=== PATIENT | female | born 1960 | race Caucasian/White ===

== ENCOUNTER 2017-01-29 11:48 | Inpatient (IN) | payer OTHER ==
[~2017-01-29] VITALS: Ht 162.6 cm; Wt 78.4 kg
[2017-01-29] VITALS (8 sets, daily range): BP systolic 118–149; BP diastolic 69–87; PULSE 80–105; RESP 16–20; TEMP 98–100.4; O2SAT 98–100
[~2017-01-29 11:48] MED LIST: ASPI81TA82 PO; DAPA1TAB8 PO; LISI2.5T55 PO; PRAV10 PO
[2017-01-29] MEDS ORDERED: SODIUM CHLOR 0.9% 1000 ML INJ 1,000 ML IV SCH (12:19)
[2017-01-29] MEDS ORDERED: ONDANSETRON HCL 4 MG/2 ML VIAL IVP ONE (12:30)
[2017-01-29] MEDS ORDERED: SODIUM CHLORIDE 0.9% FLUSH 10 ML FLUSH IV FLUSH PRN (12:30)
[2017-01-29] MEDS ORDERED: MORPHINE SULFATE 4 MG/ML INJ IV PUSH ONE (12:30)
--- NOTE | 2017-01-29 12:31 | PD ---
HPI Chief Complaint: Abdominal Pain Time Seen by Provider: 12:06 Travel History International Travel<30 days: No Contact w/Intl Traveler<30days: No Traveled to known affect area: No History of Present Illness HPI Patient is a 56-year-old female with hx of DM, HTN, Hyperlipidemia who presents to emergency room with complaints of abdominal pain. Patient reports that she has been having increased nausea, vomiting and diarrhea since Saturday. Patient reports that she had 2-3 episodes of diarrhea on Saturday, she has not had diarrhea since then. Reports that the last time she had a bowel movement was Saturday. Reports that her abdomen has been feeling distended since Saturday. Patient reports that she has been on antibiotics for URI and last took it about one month ago. Reports no sick contacts or any recent travels. Patient reports that since Saturday, she's had increased pain to her left lower abdomen, reports that pain has been constant - no history of abdominal pain in the past. Patient reports that she has been having increased fevers and chills. Denies any cough or congestion. Patient reports that overall, she has had decreased by mouth intake as she cannot tolerate anything by mouth. Patient denies any chest pain or shortness of breath. Patient reports no hx of abdominal surgeries in the past, she did have a colonscopy by Dr. Lester 1 year ago - reports that the colonscopy was negative. PFSH Past Medical History Diabetes: Yes Patient Takes Glucophage: Yes Tetanus Vaccination: > 5 Years Influenza Vaccination: No ?: Not Menopausal: Yes Past Surgical History Other Surgery: Yes (Lt. breast) Social History Alcohol Use: No Tobacco Use: No Substance Use: No Allergies-Medications (Allergen,Severity, Reaction): Coded Allergies: No Known Allergies (Unverified , 01/29/17) Reported Meds & Prescriptions Reported Meds & Active Scripts Active Macrobid (Nitrofurantoin Monoh/Nitrofur Macro) 100 Mg Cap 100 Mg PO BID 10 Days Reported Metformin (Metformin HCl) 1,000 Mg Tab 1,000 Mg PO DAILY With a meal Xigduo Xr 24 HR (Dapagliflozin-Metformin ER 24 HR) 10-1,000 Mg Tab 1 Tab PO DAILY Duloxetine DR (Duloxetine HCl) 60 Mg Capdr 60 Mg PO DAILY Trulicity Inj (Dulaglutide Inj) 1.5 Mg/0.5 Ml Pen 1.5 Mg SQ Q7D Linzess (Linaclotide) 290 Mcg Cap 290 Mcg PO DAILY Pravastatin 40 Mg Tab 40 Mg PO DAILY Lisinopril 5 Mg Tab 5 Mg PO DAILY Review of Systems General / Constitutional: Positive: Fever, Chills Eyes: No: Visual changes HENT: No: Headaches Cardiovascular: No: Chest Pain or Discomfort, Palpitations, Irregular Rhythm Respiratory: No: Cough, Shortness of Breath, Wheezing Gastrointestinal: Positive: Nausea, Vomiting, Diarrhea, Abdominal Pain Genitourinary: No: Dysuria Musculoskeletal: No: Pain Skin: No Rash Neurologic: No: Weakness Psychiatric: No: Depression Endocrine: No: Polydipsia Hematologic/Lymphatic: No: Easy Bruising Physical Exam Narrative GENERAL: No acute distress, nontoxic SKIN: Warm and dry. HEAD: Atraumatic. Normocephalic. EYES: Pupils equal and round. No scleral icterus. No injection or drainage. ENT: No nasal bleeding or discharge. Mucous membranes pink and moist. NECK: Trachea midline. No JVD. CARDIOVASCULAR: Regular rate and rhythm. No murmur appreciated. RESPIRATORY: No accessory muscle use. Clear to auscultation. Breath sounds equal bilaterally. GASTROINTESTINAL: Abdomen soft, patient with increased tenderness to the right lower as well as left lower abdomen. No rebound or guarding on exam, rectal exam: no stool in colon, neg hemacolt MUSCULOSKELETAL: No obvious deformities. No clubbing. No cyanosis. No edema. NEUROLOGICAL: Awake and alert. No obvious cranial nerve deficits. Motor grossly within normal limits. Normal speech. PSYCHIATRIC: Appropriate mood and affect; insight and judgment normal. Data Data Last Documented VS Vital Signs Date Time Temp Pulse Resp B/P Pulse Ox O2 Delivery O2 Flow Rate FiO2 01/29/17 15:35 80 16 140/83 100 Room Air 01/29/17 11:55 98.0 Orders Complete Blood Count With Diff (01/29/17 12:19) Comprehensive Metabolic Panel (01/29/17 12:19) Lipase (01/29/17 12:19) Prothrombin Time / Inr (Pt) (01/29/17 12:19) Act Partial Throm Time (Ptt) (01/29/17 12:19) Urinalysis - C+S If Indicated (01/29/17 12:19) Ct Abd/Pel W Iv Contrast(Rout) (01/29/17 12:19) Iv Access Insert/Monitor (01/29/17 12:19) Morphine Inj (Morphine Inj) (01/29/17 12:30) Ondansetron Inj (Zofran Inj) (01/29/17 12:30) Sodium Chlor 0.9% 1000 Ml Inj (Ns 1000 M (01/29/17 12:19) Sodium Chloride 0.9% Flush (Ns Flush) (01/29/17 12:30) Urine Culture (01/29/17 12:25) Ceftriaxone Inj (Rocephin Inj) (01/29/17 13:00) Iohexol 350 Inj (Omnipaque 350 Inj) (01/29/17 13:51) Sodium Chlor 0.9% 1000 Ml Inj (Ns 1000 M (01/29/17 15:45) C Diff Toxin Pcr (01/29/17 15:44) Lactic Acid Sepsis Protocol (01/29/17 15:52) Blood Culture (01/29/17 15:52) Metronidazole 500 Mg Inj (Flagyl 500 Mg (01/29/17 16:00) Admit Order (Ed Use Only) (01/29/17 16:16) Labs Laboratory Tests Test 01/29/17 12:25 White Blood Count 7.3 TH/MM3 Red Blood Count 5.21 MIL/MM3 Hemoglobin 14.9 GM/DL Hematocrit 44.3 % Mean Corpuscular Volume 85.1 FL Mean Corpuscular Hemoglobin 28.7 PG Mean Corpuscular Hemoglobin 33.7 % Concent Red Cell Distribution Width 12.8 % Platelet Count 184 TH/MM3 Mean Platelet Volume 9.4 FL Neutrophils (%) (Auto) 69.3 % Lymphocytes (%) (Auto) 21.1 % Monocytes (%) (Auto) 7.7 % Eosinophils (%) (Auto) 1.5 % Basophils (%) (Auto) 0.4 % Neutrophils # (Auto) 5.1 TH/MM3 Lymphocytes # (Auto) 1.5 TH/MM3 Monocytes # (Auto) 0.6 TH/MM3 Eosinophils # (Auto) 0.1 TH/MM3 Basophils # (Auto) 0.0 TH/MM3 CBC Comment DIFF FINAL Differential Comment Prothrombin Time 10.6 SEC Prothromb Time International 1.0 RATIO Ratio Activated Partial 24.8 SEC Thromboplast Time Urine Collection Type CLEAN CATCH Urine Color YELLOW Urine Turbidity CLEAR Urine pH 5.5 Urine Specific [place] 1.022 Urine Protein NEG mg/dL Urine Glucose (UA) 1000 OR GREATER mg/dL Urine Ketones 40 mg/dL Urine Occult Blood TRACE Urine Nitrite NEG Urine Bilirubin NEG Urine Leukocyte Esterase TRACE Urine RBC 4-9 /hpf Urine WBC 15-19 /hpf Urine WBC Clumps FEW Urine Squamous Epithelial 6-8 /hpf Cells Urine Bacteria MOD /hpf Microscopic Urinalysis Comment CULTURE INDICATED Urine Collection Time 12:25 Sodium Level 141 MEQ/L Potassium Level 3.5 MEQ/L Chloride Level 103 MEQ/L Carbon Dioxide Level 28.3 MEQ/L Anion Gap 10 MEQ/L Blood Urea Nitrogen 11 MG/DL Creatinine 0.65 MG/DL Estimat Glomerular Filtration 94 ML/MIN Rate Random Glucose 169 MG/DL Calcium Level 8.7 MG/DL Total Bilirubin 1.5 MG/DL Aspartate Amino Transf 16 U/L (AST/SGOT) Alanine Aminotransferase 25 U/L (ALT/SGPT) Alkaline Phosphatase 81 U/L Total Protein 7.2 GM/DL Albumin 3.3 GM/DL Lipase 82 U/L [facility] Medical Decision Making Medical Screen Exam Complete: Yes Emergency Medical Condition: Yes Interpretation(s) Vital Signs Date Time Temp Pulse Resp B/P Pulse Ox O2 Delivery O2 Flow Rate FiO2 01/29/17 11:55 98.0 105 18 119/87 98 Room Air Differential Diagnosis Colitis, appendicitis, viral syndrome, UTI, electrolyte abnormality, dehydration Narrative Course Patient is a 56-year-old female who presents to emergency room with complaints of abdominal pain. She reports that she has been having increased nausea, vomiting and diarrhea since Saturday. Reports that she has been having increased lower abdominal pain, worse on her left lower quadrant. Patient uncomfortable on exam, labs as well as CAT scan abdomen and pelvis ordered. Will give patient IV fluids as well as antiemetics and pain medications in the meantime. Laboratory Tests Test 01/29/17 12:25 White Blood Count 7.3 TH/MM3 (4.0-11.0) Red Blood Count 5.21 MIL/MM3 (4.00-5.30) Hemoglobin 14.9 GM/DL (11.6-15.3) Hematocrit 44.3 % (35.0-46.0) Mean Corpuscular Volume 85.1 FL (80.0-100.0) Mean Corpuscular Hemoglobin 28.7 PG (27.0-34.0) Mean Corpuscular Hemoglobin 33.7 % Concent (32.0-36.0) Red Cell Distribution Width 12.8 % (11.6-17.2) Platelet Count 184 TH/MM3 (150-450) Mean Platelet Volume 9.4 FL (7.0-11.0) Neutrophils (%) (Auto) 69.3 % (16.0-70.0) Lymphocytes (%) (Auto) 21.1 % (9.0-44.0) Monocytes (%) (Auto) 7.7 % (0.0-8.0) Eosinophils (%) (Auto) 1.5 % (0.0-4.0) Basophils (%) (Auto) 0.4 % (0.0-2.0) Neutrophils # (Auto) 5.1 TH/MM3 (1.8-7.7) Lymphocytes # (Auto) 1.5 TH/MM3 (1.0-4.8) Monocytes # (Auto) 0.6 TH/MM3 (0-0.9) Eosinophils # (Auto) 0.1 TH/MM3 (0-0.4) Basophils # (Auto) 0.0 TH/MM3 (0-0.2) CBC Comment DIFF FINAL Differential Comment Prothrombin Time 10.6 SEC (9.8-11.6) Prothromb Time International 1.0 RATIO Ratio Activated Partial 24.8 SEC Thromboplast Time (24.3-30.1) Urine Collection Type CLEAN CATCH Urine Color YELLOW (YELLW/STRAW) Urine Turbidity CLEAR (CLEAR) Urine pH 5.5 (5.0-8.5) Urine Specific [place] 1.022 (1.002-1.035) Urine Protein NEG mg/dL (NEG-TRACE) Urine Glucose (UA) 1000 OR GREATER mg/dL (NEG) Urine Ketones 40 mg/dL (NEG) Urine Occult Blood TRACE (NEG) Urine Nitrite NEG (NEG) Urine Bilirubin NEG (NEG) Urine Leukocyte Esterase TRACE (NEG) Urine RBC 4-9 /hpf (0-3) Urine WBC 15-19 /hpf (0-5) Urine WBC Clumps FEW (NONE) Urine Squamous Epithelial 6-8 /hpf (0-5) Cells Urine Bacteria MOD /hpf (NONE) Microscopic Urinalysis Comment CULTURE INDICATED Urine Collection Time 12:25 Sodium Level 141 MEQ/L (136-145) Potassium Level 3.5 MEQ/L (3.5-5.1) Chloride Level 103 MEQ/L (98-107) Carbon Dioxide Level 28.3 MEQ/L (21.0-32.0) Anion Gap 10 MEQ/L (5-15) Blood Urea Nitrogen 11 MG/DL (7-18) Creatinine 0.65 MG/DL (0.50-1.00) Estimat Glomerular Filtration 94 ML/MIN (>89) Rate Random Glucose 169 MG/DL (74-106) Calcium Level 8.7 MG/DL (8.5-10.1) Total Bilirubin 1.5 MG/DL (0.2-1.0) Aspartate Amino Transf 16 U/L (15-37) (AST/SGOT) Alanine Aminotransferase 25 U/L (10-53) (ALT/SGPT) Alkaline Phosphatase 81 U/L (45-117) Total Protein 7.2 GM/DL (6.4-8.2) Albumin 3.3 GM/DL CT abdomen and pelvis with IV contrast (3.4-5.0) Lipase 82 U/L (73-393) CT the abdomen and pelvis with IV contrast shows diffuse gaseous distention of the colon. No definite findings to indicate a colonic instruction are seen. No free air or free fluid is present. I did review all labs and all studies of patient in detail. Patient with benign exam except for the positive UA. Urine cultures were sent. CBC: WNL BMP: sodium 141, cl 103, potassium 3.5, bun: 11, creatine: 0.65, glucose 169, total bili 1.5, lipase 82 UA Positive for 1000 or greater glucose, 40 ketones, 15-19 wbc, 4-9 rbc, mod bacteria Last Impressions Abdomen/Pelvis CT 01/29/17 1219 Signed Impressions: Service Date/Time: Sunday, January 29, 2017 13:38 - CONCLUSION: 1. Diffuse gaseous distention of the colon. No definite findings to indicate a colonic obstruction are seen. No free air or free fluid is present. Cameron Adamson MD patient re-evaluated, patient with continued pain to abdomen, pt was ordered morphine which she refuses at this time. call made to gen surgery as patient has diffuse gaseous distention of colon and intractable pain case reviewed with Dr. Aguirre, reports concern for possible ischemic colitis secondary to low flow state, recommends IV hydration and r/o infectious cause will obs to medicine, call made to Dr. Amarilys Lester, recommends that patient revieves multiple enema's tonight, will see pt in consult tomorrow morning case reviewed with Dr. moreno who accepts pt to service Critical Care Narrative Aggregate critical care time was 30 minutes. Time to perform other separately billable procedures was not included in the critical care time. My time did not include minutes spent treating any other patients simultaneously or on activities that did not directly contribute to the patient's treatment. The services I provided to this patient were to treat and/or prevent clinically significant deterioration that could result in: , decompensation, deterioration I provided critical care services requiring my management, as noted below: Chart data review, documentation time, medication orders and management, vital sign assessments/reviewing monitor data, ordering and reviewing lab tests, ordering and interpreting/reviewing x-rays and diagnostic studies, care of the patient and discussion of the patient with the admitting physicians. Diagnosis Primary Impression: Abdominal pain Qualified Code: R10.30 - Lower abdominal pain Additional Impression: UTI (urinary tract infection) Qualified Code: N30.01 - Acute cystitis with hematuria Admitting Information Admitting Physician Requests: Observation Patient Instructions: General Instructions Additional Instructions: Please provide patient with a copy of her labs work and studies as discharge Please follow up with your primary care doctor in 1-2 days Return to ER if symptoms return or worsen Please bring your labs and studies to your doctor's office for follow up Return to ER as needed Med/Other Pt SpecificInfo: Prescription(s) given Scripts Nitrofurantoin Monohydrate Macrocrystals (Macrobid)100 Mg [id number] Mg PO BID 10 Days Ref 0 Prov:Katelynn Horne DO 01/29/17 Disposition: 01 DISCHARGE HOME Katelynn Horne DO Jan 29, 2017 12:31
[2017-01-29 12:33] LABS: BLOOD, URINE TRACE (NEG); GLUCOSE,URINE 1000 OR GREATER mg/dL (NEG); KETONE, URINE 40 mg/dL (NEG); NITRITE,URINE NEG (NEG); PH, URINE 5.5 (5.0-8.5)
[2017-01-29 12:36] LABS: AUTOMATED NEUTROPHIL # 5.1 TH/MM3 (1.8-7.7); BASOPHIL % 0.4 % (0.0-2.0); EOSINOPHIL # 0.1 TH/MM3 (0-0.4); EOSINOPHIL % 1.5 % (0.0-4.0); HEMATOCRIT 44.3 % (35.0-46.0); HEMO FLAGS DIFF FINAL; LYMPH % 21.1 % (9.0-44.0); LYMPHOCYTE # 1.5 TH/MM3 (1.0-4.8); MEAN CELL VOLUME 85.1 FL (80.0-100.0); MEAN CORPUSCULAR HEMOGLOBIN 28.7 PG (27.0-34.0); MEAN CORPUSCULAR HGB CONC 33.7 % (32.0-36.0); MONO % 7.7 % (0.0-8.0); NEUT % 69.3 % (16.0-70.0); PLATELET COUNT 184 TH/MM3 (150-450); RED BLOOD COUNT 5.21 MIL/MM3 (4.00-5.30); RED CELL DISTRIBUTION WIDTH 12.8 % (11.6-17.2); WHITE BLOOD COUNT 7.3 TH/MM3 (4.0-11.0)
[2017-01-29 12:43] LABS: CHLORIDE 103 MEQ/L (98-107); POTASSIUM 3.5 MEQ/L (3.5-5.1); SODIUM (NA) 141 MEQ/L (136-145)
[2017-01-29 12:44] LABS: METHOD OF COLLECTION CLEAN CATCH; URINE COLOR YELLOW (YELLW/STRAW)
[2017-01-29 12:45] LABS: BACTERIA, URINE MOD /hpf; COMMENT (UR) CULTURE INDICATED; CULTURE IF INDICATED CULTURE INDICATED; WBC, URINE 15-19 /hpf (0-5)
[2017-01-29 12:47] LABS: APTT (PATIENT) 24.8 SEC (24.3-30.1); PROTHROMBIN TIME - PATIENT 10.6 SEC (9.8-11.6)
[2017-01-29 12:48] LABS: ANION GAP 10 MEQ/L (5-15); BICARBONATE 28.3 MEQ/L (21.0-32.0); BLOOD UREA NITROGEN 11 MG/DL (7-18)
[2017-01-29] MEDS ORDERED: DULA0.5I SQ (12:48)
[2017-01-29] MEDS ORDERED: DULO1CAP3 PO (12:48)
[2017-01-29] MEDS ORDERED: PRAV40TA2 PO (12:48)
[2017-01-29] MEDS ORDERED: LINA290C PO (12:48)
[2017-01-29] MEDS ORDERED: LISI-519 PO (12:48)
[2017-01-29] MEDS ORDERED: DAPA1TAB8 PO (12:48)
[2017-01-29] MEDS ORDERED: METF1000 PO (12:48)
[2017-01-29 12:51] LABS: ALT (GPT) 25 U/L (10-53); AST (GOT) 16 U/L (15-37); GLOMERULAR FILTRATION RATE 94 ML/MIN (>89)
[2017-01-29 12:52] LABS: TOTAL BILIRUBIN ADULT 1.5 MG/DL (0.2-1.0)
[2017-01-29 12:53] LABS: ALKALINE PHOSPHATASE 81 U/L (45-117)
[2017-01-29] MEDS ORDERED: cefTRIAXone INJ 1,000 MG in SODIUM CHLORIDE 0.9% INJ 100 ML IV ONE (13:00)
[2017-01-29] MEDS: METFORMIN HOLD POST IV CONTRAST XX SCH (13:50)
[2017-01-29] MEDS ORDERED: IOHEXOL 350 MG/ML 10 ML VIAL (for RAD DIAG) IV ONE (13:51)
--- NOTE | 2017-01-29 14:31 | RADHPO ---
EXAM DATE/TIME: 01/29/2017 13:38 [place] COMPARISON: No previous studies available for comparison. INDICATIONS : Left lower quadrant abdominal pain with nausea and vomiting. IV CONTRAST: 95 cc Omnipaque 350 (iohexol) IV ORAL CONTRAST: No oral contrast ingested. RADIATION DOSE: 11.18 CTDIvol (mGy) MEDICAL HISTORY : Diabetes. SURGICAL HISTORY : Left breast lumpectomy. ENCOUNTER: Initial ACUITY: 4 - 6 days PAIN SCALE: 9/10 LOCATION: Left lower quadrant TECHNIQUE: Volumetric scanning of the abdomen and pelvis was performed. Using automated exposure control and ad justment of the mA and/or kV according to patient size, radiation dose was kept as low as reasonably achievable to obtain optimal diagnostic quality images. FINDINGS: The limited portion of the lung base visualized is clear. The appearance of the liver, spleen, pancreas, adrenal glands and kidneys is within normal limits. There is no free intraperitoneal air. No free intraperitoneal fluid is identified. There is no retrop eritoneal lymphadenopathy. The aorta is normal in caliber. The visualized loops of small large bowel demonstrate diffuse, gaseous distention of the colon. The c olon is distended throughout its course. No definite findings to indicate a colonic obstruction are s een. There is gas and stool down to the rectum. No free intraperitoneal air or free intraperitoneal f luid is present. There is no free fluid within the pelvis. No iliac or inguinal adenopathy is seen. The reproductive o rgans are intact. The visualized bony structures demonstrate mild degenerative changes but are otherwise intact. CONCLUSION: 1. Diffuse gaseous distention of the colon. No definite findings to indicate a colonic obstruction ar e seen. No free air or free fluid is present. Cameron Adamson MD on January 29, 2017 at 14:19 Board Certified Radiologist. This report was verified electronically.
[2017-01-29] MEDS ORDERED: MACR100C2 PO (14:35)
[2017-01-29] MEDS ORDERED: SODIUM CHLOR 0.9% 1000 ML INJ 1,000 ML IV ONE (15:45)
[2017-01-29] MEDS ORDERED: metroNIDAZOLE 500 MG INJ 100 ML IV ONE (16:00)
[2017-01-29] MEDS ORDERED: NALOXONE HCL 0.4 MG/ML AMP IV PRN (17:30)
[2017-01-29] MEDS ORDERED: METOCLOPRAMIDE HCL 10 MG/2 ML VIAL IV PUSH PRN (17:30)
[2017-01-29] MEDS ORDERED: SOD PHOSPHATE/SOD BIPHOSPHATE (ADULT) ENEMA 133ML PR PRN ×2 (17:30→19:20)
[2017-01-29] MEDS ORDERED: BISACODYL 10 MG SUPP PR PRN (17:30)
[2017-01-29] MEDS: SODIUM CHLOR 0.9% 1000 ML INJ 1,000 ML IV SCH (18:53)
--- NOTE | 2017-01-29 19:35 | HHI.HP ---
[facility] Alexandra De Guzman Admission Diagnosis intractable abdominal pain, constipation vs ischemic colitis Diagnoses: Chief Complaint: Abdominal pain and distention nausea vomiting Travel History International Travel<30 Days: No Contact w/Intl Traveler <30 Da: No Traveled to Known Affected Are: No History of Present Illness 83 years old female with history of diabetes mellitus hypertension hyperlipidemia presented to the ED complaining of severe abdominal pain 9 out of 10 constant with nausea and vomiting, and alternating diarrhea and constipation. Patient had 2-3 episodes of diarrhea on Saturday but she has been constipated without even Fleet just passing ever since. Complaining of worsening significant abdominal distention and blanching. Patient also reported seeing blood in the bottom of the toilets [place] darker side, Patient started on antibiotic for upper respiratory infection about a month ago. She reported the pain is mainly on her left lower quadrant without transfer, get slightly better with passing gas if she was able to. No chest pain or short of breath, subjective feverish feeling with chills, not able to tolerate by mouth intake however she does feel hungry. No previous history of abdominal surgery, she had colonoscopy by Dr. Barry 1 year ago and she reported it was negative Review of Systems All 10 systems reviewed and was positive for what is mentioned in history of present illness otherwise negative Past Family Social History Past Medical History As in history of present illness Past Surgical History Colonoscopy a year ago Allergies: Coded Allergies: No Known Allergies (Unverified , 01/29/17) Family History Patient not aware of any significant disease runs in her family Social History Denied tobacco alcohol or illicit drug abuse Physical Exam Vital Signs Vital Signs Date Time Temp Pulse Resp B/P Pulse Ox O2 Delivery O2 Flow Rate FiO2 01/29/17 15:35 80 16 140/83 100 Room Air 01/29/17 11:55 98.0 105 18 119/87 98 Room Air Physical Exam GENERAL: This is a well-nourished, well-developed obese patient, in no apparent distress. SKIN: No rashes, warm and dry HEAD: Atraumatic. Normocephalic. EYES: Pupils equal round and reactive. Extraocular motions intact. No scleral icterus. ENT: Nose without bleeding, or drainage, Airway patent. NECK: Trachea midline. Supple CARDIOVASCULAR: Regular rate and rhythm without murmurs, gallops, or rubs. RESPIRATORY: Fair air entry bilaterally. No wheezes, rales, or rhonchi. GASTROINTESTINAL: Abdomen soft, positive tenderness left lower quadrant, positive distention with tympanic percussion. Positive bowel sounds MUSCULOSKELETAL: Extremities without clubbing, cyanosis, or edema. Pedal pulses appreciated NEUROLOGICAL: Awake and alert. Moves all extremity. Normal speech.no focal neurological deficit Laboratory Laboratory Tests Test 01/29/17 01/29/17 12:25 16:00 White Blood Count 7.3 Red Blood Count 5.21 Hemoglobin 14.9 Hematocrit 44.3 Mean Corpuscular Volume 85.1 Mean Corpuscular Hemoglobin 28.7 Mean Corpuscular Hemoglobin 33.7 Concent Red Cell Distribution Width 12.8 Platelet Count 184 Mean Platelet Volume 9.4 Neutrophils (%) (Auto) 69.3 Lymphocytes (%) (Auto) 21.1 Monocytes (%) (Auto) 7.7 Eosinophils (%) (Auto) 1.5 Basophils (%) (Auto) 0.4 Neutrophils # (Auto) 5.1 Lymphocytes # (Auto) 1.5 Monocytes # (Auto) 0.6 Eosinophils # (Auto) 0.1 Basophils # (Auto) 0.0 CBC Comment DIFF FINAL Differential Comment Prothrombin Time 10.6 Prothromb Time International 1.0 Ratio Activated Partial 24.8 Thromboplast Time Urine Collection Type CLEAN CATCH Urine Color YELLOW Urine Turbidity CLEAR Urine pH 5.5 Urine Specific [place] 1.022 Urine Protein NEG Urine Glucose (UA) 1000 OR GREATER Urine Ketones 40 Urine Occult Blood TRACE Urine Nitrite NEG Urine Bilirubin NEG Urine Leukocyte Esterase TRACE Urine RBC 4-9 Urine WBC 15-19 Urine WBC Clumps FEW Urine Squamous Epithelial 6-8 Cells Urine Bacteria MOD Microscopic Urinalysis Comment CULTURE INDICATED Urine Collection Time 12:25 Sodium Level 141 Potassium Level 3.5 Chloride Level 103 Carbon Dioxide Level 28.3 Anion Gap 10 Blood Urea Nitrogen 11 Creatinine 0.65 Estimat Glomerular Filtration 94 Rate Random Glucose 169 Calcium Level 8.7 Total Bilirubin 1.5 Aspartate Amino Transf 16 (AST/SGOT) Alanine Aminotransferase 25 (ALT/SGPT) Alkaline Phosphatase 81 Total Protein 7.2 Albumin 3.3 Lipase 82 Lactic Acid Level 1.0 Date/Time Procedure Status Source Growth 01/29/17 16:00 Aerobic Blood Culture Received Blood Peripheral Pending 01/29/17 16:00 Anaerobic Blood Culture Received Blood Peripheral Pending 01/29/17 12:25 Urine Culture Received Urine Clean Catch Pending Result Diagram: 01/29/17 1225 01/29/17 1225 Imaging Last Impressions Abdomen/Pelvis CT 01/29/17 1219 Signed Impressions: Service Date/Time: Sunday, January 29, 2017 13:38 - CONCLUSION: 1. Diffuse gaseous distention of the colon. No definite findings to indicate a colonic obstruction are seen. No free air or free fluid is present. Cameron Adamson MD Assessment and Plan Assessment and Plan 56 years old diabetic female presented with abdominal distention nausea vomiting and occasional diarrhea alternates with constipation now and rectal bleeding she was found to have diffuse gaseous pattern on CT abdomen without any thickened blockage or free air. Suspect ischemic bowel due to low flow due to constipation Presented with severe abdominal pain, nausea vomiting, occasional diarrhea with rectal bleed alternate with constipation ? Gastroparesis due to diabetes GS has been contacted by ED recommended calling Dr. Lester colorectal surgeon who recommended admission, multiple enemas and further recommendation when she sees the patient. Keep nothing by mouth Check LDH lactic acid Consult CRS Pain management cautiously with morphine only as needed for severe pain due to negative effect on bowel motility Reglan and Fleet Enema UTI with remarkable UA and glucosuria Start Rocephin and he will continue Follow urine culture Diabetes mellitus: Check A1c to assess control Accu-Chek with insulin sliding scale Hold metformin and other oral agent Hyperlipidemia Continue statin oral diet resumed DVT prophylaxis with SCD and heparin Discussed Condition With ED physician and patient Chantel Tyson MD Jan 29, 2017 19:35
[2017-01-29] MEDS ORDERED: MORPHINE SULFATE 4 MG/ML INJ IV PUSH PRN (20:30)
[2017-01-29] MEDS: HEPARIN SODIUM - SQ 10,000 UNITS/ML VIAL SQ SCH (21:36)
[2017-01-30] VITALS (15 sets, daily range): BP systolic 80–146; BP diastolic 54–91; PULSE 76–154; RESP 18–20; TEMP 97.4–98.5; O2SAT 97–100
[2017-01-30] MEDS: SODIUM CHLOR 0.9% 1000 ML INJ 1,000 ML IV SCH ×2 (05:02→13:17)
[2017-01-30] MEDS: HEPARIN SODIUM - SQ 10,000 UNITS/ML VIAL SQ SCH ×2 (05:04→13:53)
[2017-01-30 06:55] LABS: AUTOMATED NEUTROPHIL # 3.9 TH/MM3 (1.8-7.7); BASOPHIL % 0.5 % (0.0-2.0); EOSINOPHIL # 0.1 TH/MM3 (0-0.4); EOSINOPHIL % 2.2 % (0.0-4.0); HEMATOCRIT 38.5 % (35.0-46.0); HEMO FLAGS DIFF FINAL; LYMPH % 25.8 % (9.0-44.0); LYMPHOCYTE # 1.6 TH/MM3 (1.0-4.8); MEAN CELL VOLUME 85.9 FL (80.0-100.0); MEAN CORPUSCULAR HEMOGLOBIN 28.7 PG (27.0-34.0); MEAN CORPUSCULAR HGB CONC 33.5 % (32.0-36.0); MONO % 7.7 % (0.0-8.0); NEUT % 63.8 % (16.0-70.0); PLATELET COUNT 159 TH/MM3 (150-450); RED BLOOD COUNT 4.48 MIL/MM3 (4.00-5.30); RED CELL DISTRIBUTION WIDTH 12.8 % (11.6-17.2); WHITE BLOOD COUNT 6.1 TH/MM3 (4.0-11.0)
[2017-01-30 06:57] LABS: POTASSIUM 3.8 MEQ/L (3.5-5.1)
[2017-01-30 07:02] LABS: BICARBONATE 22.8 MEQ/L (21.0-32.0)
[2017-01-30 07:06] LABS: TOTAL BILIRUBIN ADULT 1.1 MG/DL (0.2-1.0)
[2017-01-30 07:11] LABS: INDIRECT BILIRUBIN 0.9 MG/DL (0.0-0.8)
--- NOTE | 2017-01-30 09:30 | MB ---
cc: BRANDY RIBEIRO M.D., ERICA L. D.O. DATE OF CONSULTATION: 01/30/2017 CHIEF COMPLAINT Abdominal pain. HISTORY OF PRESENT ILLNESS The patient is a 56-year-old female I actually saw within the last year for a screening colonoscopy, which was essentially negative. She was diagnosed with diabetes at about that same time and since then has had not great control of her blood sugars. Initially her A1c was in the 14 range. She did get it down to about 7, but then it came back up to 10. Since the first of the year she has had multiple urinary tract infections and yeast infections and just has really had a variety of problems. Over the last 5-7 days, she began having increasing bloating and abdominal pain with some nausea and vomiting. She had 2-3 episodes of loose stool on Saturday and she has had some blood with that. On her arrival in the hospital she reported her pain as severe and has felt hot, although has not taken her temperature. She has not been eating due to her abdominal pain. She denies any shortness of breath. PAST MEDICAL HISTORY Diabetes. PAST SURGICAL HISTORY Left breast biopsy. ALLERGIES None. MEDICATIONS 1. Metformin. 2. Duloxetine. 3. Trulicity. 4. Xigduo. 5. Linzess. 6. Pravastatin. 7. Lisinopril. REVIEW OF SYSTEMS Negative for headaches, change in vision, chest pain, shortness of breath, cough, dysuria, hematuria, difficulty with ambulation or mobility. Positive for depression, fevers, abdominal pain, nausea, vomiting, diarrhea. LABORATORY DATA Laboratory work on admission showed a white count of 7.3, hemoglobin of 14.9 and platelets of 184. This morning white count 6.1, hemoglobin 12.9, platelets 159. Her initial chemistry was normal. Chemistry this morning is basically normal as well, although she does have some mild elevation of her bilirubin to 1.1. Her coags are normal. Urine does show sign of infection and culture is pending. IMAGING DATA CT scan showed a large amount of air throughout the colon but no sign of obstruction. No thickening of the colon indicative of colitis or inflammation and no free air or free fluid. PHYSICAL EXAMINATION GENERAL: An alert female who appears comfortable. NEUROLOGIC: Grossly intact. SKIN: Warm and dry. CARDIOVASCULAR: Regular rate. CHEST: Breathing is symmetric bilaterally and nonlabored. ABDOMEN: Soft, nondistended. Really minimal tenderness on exam. RECTAL: Digital rectal examination reveals good tone. There is no blood on my examining finger. The rectal vault is smooth without any palpable inflammation or abnormality. An enema is also performed without difficulty, with passage of a large amount of gas and some small amounts of brownish stool but no significant blood. IMPRESSION 1. Abdominal pain. 2. Bloating. PLAN I am not clear what caused her failure to pass stool or the loose stools; it is difficult to say. Most of what she describes as loose stools was mostly gas and a very small amount of stool with her reported diarrhea. RECOMMENDATIONS I think it is perfectly reasonable to have her discharged from hospital today. I will follow-up with her in my office tomorrow. I have recommended that she take a dose of MiraLax today, tomorrow and Saturday to see if we can keep things moving. If this becomes a more chronic problem, further testing will be necessary. Thank you very much for your kind referral. MD RHETT Thomas/KYAW /8:58 AM /9:13 AM MTDAnny
[2017-01-30] MEDS ORDERED: BISA10R PR (10:28)
[2017-01-30] MEDS ORDERED: PERI8.6T PO (10:28)
[2017-01-30 11:55] LABS: C. DIFF EPI 027 PRESUMPTIVE NEGATIVE (NEGATIVE); C. DIFF TOXIN PCR NEGATIVE (NEGATIVE)
[2017-01-30] MEDS: cefTRIAXone INJ 1,000 MG in SODIUM CHLORIDE 0.9% INJ 100 ML IV SCH (12:41)
[2017-01-30] MEDS ORDERED: NITROGLYCERIN 0.4 MG SL 25 TABS/BTL SL PRN (12:45)
[2017-01-30] MEDS ORDERED: DILTIAZEM INJ 125 MG in SODIUM CHLORIDE 0.9% INJ 100 ML IV SCH (13:15)
[2017-01-30] MEDS ORDERED: DILTIAZEM HCL 25 MG/5 ML VIAL IV PUSH ONE (13:15)
--- NOTE | 2017-01-30 13:38 | HHI.PR ---
Subjective Remarks I saw the patient earlier this morning, she already had 2 bowel movement she feel little relief in her abdomen, however she stated she feels dizzy and lightheaded, we discussed that and initially thought to be due to straining and vasovagal reaction No fever or chills overnight, patient seen by the colorectal and recommended me relax and follow as an outpatient Enter[facility] I was called by the nurse patient had heart rate of 190, telemetry showed A. fib, 2-D echo showed A. fib with RVR, patient double up chest pain mostly due to the A. fib Objective Vitals Vital Signs Date Time Temp Pulse Resp B/P Pulse Ox O2 Delivery O2 Flow Rate FiO2 01/30/17 13:20 101 01/30/17 13:03 20 01/30/17 12:29 97.5 100 18 101/74 98 01/30/17 12:00 115 01/30/17 08:00 97.4 83 18 128/69 99 01/30/17 04:00 98.2 86 20 146/91 99 01/30/17 00:00 98.3 91 20 118/69 99 01/29/17 21:06 92 01/29/17 21:00 99.5 90 20 139/81 99 01/29/17 20:30 90 20 144/77 99 01/29/17 20:15 20 01/29/17 20:15 100.4 91 20 149/76 99 01/29/17 19:55 100 01/29/17 15:35 80 16 140/83 100 Room Air I/O 01/29/17 01/29/17 01/29/17 01/30/17 01/30/17 01/30/17 07:00 15:00 23:00 07:00 15:00 23:00 Intake Total 1100 ml 1160 ml 700 ml Output Total 400 ml Balance 1100 ml 1160 ml 300 ml Intake Oral 60 ml 0 ml IV Total 1100 ml 1100 ml 700 ml Output Urine Total 400 ml # Voids 1 1 1 # Bowel Movements 2 0 1 Result Diagram: 01/30/17 0520 01/30/17 0520 Imaging Last Impressions Abdomen/Pelvis CT 01/29/17 1219 Signed Impressions: Service Date/Time: Sunday, January 29, 2017 13:38 - CONCLUSION: 1. Diffuse gaseous distention of the colon. No definite findings to indicate a colonic obstruction are seen. No free air or free fluid is present. Cameron Adamson MD Objective Remarks GENERAL: This is a well-nourished, well-developed patient, in no apparent distress. SKIN: No rashes, warm and dry HEAD: Atraumatic. Normocephalic. EYES: Pupils equal round and reactive. Extraocular motions intact. No scleral icterus. ENT: Nose without bleeding, or drainage, Airway patent. NECK: Trachea midline. Supple CARDIOVASCULAR: Regular rate and rhythm without murmurs, gallops, or rubs. RESPIRATORY: Fair air entry bilaterally. No wheezes, rales, or rhonchi. GASTROINTESTINAL: Abdomen soft, still have mild tenderness but less than before , nondistended. Positive bowel sounds MUSCULOSKELETAL: Extremities without clubbing, cyanosis, or edema. Pedal pulses appreciated NEUROLOGICAL: Awake and alert. Moves all extremity. Normal speech.no focal neurological deficit Later on patient had irregularly irregular heart auscultation with no murmur A/P Assessment and Plan 56 years old diabetic female presented with abdominal distention nausea vomiting and occasional diarrhea alternates with constipation now and rectal bleeding she was found to have diffuse gaseous pattern on CT abdomen without any thickened blockage or free air. Suspect ischemic bowel due to low flow due to constipation Presented with severe abdominal pain, nausea vomiting, occasional diarrhea with rectal bleed alternate with constipation ? Gastroparesis due to diabetes GS has been contacted by ED recommended calling Dr. Lester colorectal surgeon who recommended admission, multiple enemas and further recommendation when she sees the patient. Keep nothing by mouth LDH lactic acid WNL Appreciate CRS consult, recommended MIRALAX and keeping stool soft Pain management cautiously with morphine only as needed for severe pain due to negative effect on bowel motility Reglan and Fleet Enema UTI with remarkable UA and glucosuria Start Rocephin and he will continue Follow urine culture Diabetes mellitus: Check A1c to assess control Accu-Chek with insulin sliding scale Hold metformin and other oral agent Hyperlipidemia Continue statin oral diet resumed DVT prophylaxis with SCD and heparin Patient later on developed chest anal with lightheaded, EKG ordered and personally reviewed by me showed A. fib with RVR with a heart rate of 192 Patient started on Cardizem, Sandro Vascor 3, we need to start anticoagulation but we will consult with colorectal surgeon considering patient history of rectal bleed Check cardiac enzyme, monitor telemetry Chantel Tyson MD Jan 30, 2017 13:38
[2017-01-30] MEDS: ACETAMINOPHEN 325 MG TAB PO PRN (13:44)
[2017-01-30] MEDS: METFORMIN HOLD POST IV CONTRAST XX SCH (13:50)
[2017-01-30 14:11] LABS: CREATINE KINASE 34 U/L (26-192)
[2017-01-30] MEDS: ENOXAPARIN SODIUM 80 MG/0.8 ML SYRINGE SQ SCH (15:39)
[2017-01-30] MEDS ORDERED: IBUPROFEN 400 MG TAB PO PRN (16:45)
[2017-01-30 19:35] LABS: CREATINE KINASE 101 U/L (26-192)
[2017-01-30 19:48] LABS: CKMB 0.5 NG/ML (0.5-3.6)
--- NOTE | 2017-01-30 20:01 | EC ---
Study Study Date:01/30/2017 STUDY CONCLUSIONS SUMMARY LEFT VENTRICLE: The cavity size was normal. Wall thickness was normal. Systolic function was normal. The estimated ejection fraction was 60%. Wall motion was normal; there were no regional wall motion abnormalities. If LV function is below 40, please consider prescribing an ACEI or ARB or document rationale for non-use. PROCEDURE DATA STUDY STATUS: Elective. Procedure: Transthoracic echocardiography. Image quality was good. Scanning was performed from the parasternal, apical, and subcostal acoustic windows. Study completion: The patient tolerated the procedure well. Transthoracic echocardiography. M-mode, complete 2D, complete spectral Doppler, and color Doppler. Height: Height: 64in. Weight: Weight: 171.6lb. Body mass index: BMI: 29.5kg/m^2. Body surface area: BSA: 1.83m^2. Patient status: Inpatient. CARDIAC ANATOMY LEFT VENTRICLE: The cavity size was normal. Wall thickness was normal. Systolic function was normal. The estimated ejection fraction was 60%. Wall motion was normal; there were no regional wall motion abnormalities. AORTIC VALVE: Trileaflet; mildly thickened leaflets. Doppler: Transvalvular velocity was within the normal range. There was no stenosis. No regurgitation. Valve area: 2.54cm^2 (Vmax). Indexed valve area: 1.39cm^2/m^2 (Vmax). AORTA: Aortic root: The aortic root was normal in size. MITRAL VALVE: Structurally normal valve. Doppler: Transvalvular velocity was within the normal range. There was no evidence for stenosis. No regurgitation. LEFT ATRIUM: The atrium was normal in size. RIGHT VENTRICLE: The cavity size was normal. Wall thickness was normal. PULMONIC VALVE: Doppler: Transvalvular velocity was within the normal range. There was no evidence for stenosis. No regurgitation. TRICUSPID VALVE: Structurally normal valve. Doppler: Transvalvular velocity was within the normal range. Trace regurgitation. PULMONARY ARTERY: The main pulmonary artery was normal-sized. Systolic pressure was within the normal range. RIGHT ATRIUM: The atrium was normal in size. PERICARDIUM: There was no pericardial effusion. SYSTEMIC VEINS: Inferior vena cava: The vessel was normal in size. Patient weight: 171.6lb _Ejection fraction:_ 65-75% _Fractional shortening:_ 32% up to 5Kg 5-11.5Kg 11.6-22.9Kg 23-45Kg 45-57Kg Aortic Root 7-13 <17 13-22 17-27 17-27 LA diam 6-13 <23 24-38 33-47 37-40 RVID 10-17 7-15 7-15 7-18 8-17 LVIDd 12-22 <32 24-38 33-47 37-40 LVPW 2-4 3-6 5-7 6-8 7-8 IVS 2-4 3-6 5-7 6-8 7-8 BASIC MEASUREMENTS ADULT NORMAL Left ventricle LV internal dimension, ED, chordal *42 mm 43-52 level, PLAX LV internal dimension, ES, chordal 31.6 mm 23-38 level, PLAX Fractional shortening, chordal level, *25 % >29 PLAX LV posterior wall thickness, ED 7.07 mm IVS/LVPW ratio, ED 1.19 <1.3 Ventricular septum Septal thickness, ED 8.39 mm Aortic valve Leaflet separation 17 mm 15-26 BASIC MEASUREMENTS ADULT NORMAL Aortic valve Leaflet separation 17 mm 15-26 Aorta Root diameter, ED 31 mm 20-37 Left atrium Anterior-posterior dimension, ES 35 mm 19-40 Anterior-posterior dimension index, ES 1.91 cm/m^2 <2.2 LA/aortic root ratio 1.13 DOPPLER MEASUREMENTS ADULT NORMAL Main pulmonary artery Pressure, S 24 mm Hg =30 Aortic valve Peak velocity, S 99 cm/s Valve area, Vmax 2.54 cm^2 Valve area index, Vmax 1.39 cm^2/m^2 Mitral valve Peak E-wave velocity 49.9 cm/s Peak A-wave velocity 67.1 cm/s Deceleration time 183 ms 150-230 Peak E/A ratio 0.7 Tricuspid valve Regurgitant peak velocity 189 cm/s Peak RV-RA gradient, S 14 mm Hg Maximal regurgitant velocity 189 cm/s Systemic veins Estimated CVP 10 mm Hg Right ventricle RV pressure, S 27 mm Hg <30 Pulmonic valve Peak velocity, S 90.9 cm/s LEGEND: Mean values are shown as u=mean value. Asterisk (*) anderson values outside specified normal range. Prepared and signed by Silvia Ervin [id number]
--- NOTE | 2017-01-30 23:08 | MB ---
cc: SILVIA SÁNCHEZ MD DATE OF CONSULTATION: 01/30/2017 REASON FOR CONSULTATION: HISTORY OF PRESENT ILLNESS: Ms. Boykin is a 56 year-old white female admitted with abdominal pain, nausea and vomiting. She was severely constipated. She had colonoscopy which was reported unremarkable. She was supposed to be discharged today but she developed atrial fibrillation with rapid ventricular response. She had shortness of breath with atrial fibrillation. She spontaneously converted to sinus rhythm. She is now feeling better. She had three similar episodes over the last year. PAST MEDICAL HISTORY: 1. Hypertension. 2. Dyslipidemia. 3. Diabetes mellitus. MEDICATIONS: 1. Lovenox 2. Ceftriaxone ALLERGIES: NONE. SOCIAL HISTORY: The patient does not smoke. She does not drink alcohol. FAMILY HISTORY: Unknown. REVIEW OF SYSTEMS: Otherwise negative. PHYSICAL EXAMINATION: VITAL SIGNS: Blood pressure 130/81, pulse 90 regular. HEENT: Negative, 2+ carotid upstrokes. No bruits. LUNGS: Clear. HEART: Regular with no murmur, gallop or rub. ABDOMEN: Soft. No bruits. EXTREMITIES: Without edema. 2+ distal pulses. NEUROLOGIC: Grossly intact. EKG: EKG initially reviewed, atrial fibrillation with rapid ventricular response and nonspecific ST-T wave changes. Follow up EKG showed sinus rhythm. LABORATORY DATA: Hemoglobin 12.9, potassium 3.8, creatinine 0.44, CK and troponin negative. AST/ALT normal. Echocardiogram shows preserved left ventricular systolic function, ejection fraction 60% with no wall motion abnormalities. DIAGNOSIS: 1. Atrial fibrillation with rapid ventricular response. 2. Abdominal pain and constipation. 3. UTI. 4. Diabetes mellitus. 5. Dyslipidemia. 6. Hypertension. DISPOSITION: Ms. Boykin will be started on low dose beta-long. She will continue aspirin. She should be started on warfarin once her GI evaluation is completed. Aspirin should be discontinued once warfarin is started. Her echocardiogram showed preserved left ventricular systolic function. She will follow up with Dr. Alexandra De Guzman, her primary care physician, after discharge. Silvia Sánchez MD OQ/ASHLEY /10:04 PM /10:57 PM [facility]
[2017-01-30] MEDS: METOPROLOL TARTRATE 25 MG TAB PO SCH (23:17)
[2017-01-31] VITALS (7 sets, daily range): BP systolic 109–189; BP diastolic 64–87; PULSE 63–75; RESP 14–18; TEMP 96.3–97.1; O2SAT 94–100
[2017-01-31 01:58] LABS: CREATINE KINASE 35 U/L (26-192)
[2017-01-31] MEDS: ENOXAPARIN SODIUM 80 MG/0.8 ML SYRINGE SQ SCH ×2 (03:34→13:32)
[2017-01-31] MEDS: LACTOBACILLUS ACIDOPHILUS TAB PO SCH ×3 (08:54→16:59)
[2017-01-31] MEDS: METOPROLOL TARTRATE 25 MG TAB PO SCH ×2 (08:54→20:39)
[2017-01-31] MEDS: SODIUM CHLOR 0.9% 1000 ML INJ 1,000 ML IV SCH ×3 (08:55→20:39)
--- NOTE | 2017-01-31 12:02 | HHI.PR ---
Subjective Remarks Follow-up atrial fibrillation, abdominal pain. The patient states that her abdominal pain is much better. Heart rate has been well controlled this morning. Denies chest pain or dyspnea. Objective Vitals Vital Signs Date Time Temp Pulse Resp B/P Pulse Ox O2 Delivery O2 Flow Rate FiO2 01/31/17 10:27 96.7 66 16 141/74 94 01/31/17 08:00 63 01/31/17 04:00 97.0 63 18 126/78 99 01/31/17 01:41 69 01/31/17 00:00 96.3 64 18 109/64 96 01/30/17 20:30 84 01/30/17 20:00 97.7 76 18 120/71 99 01/30/17 18:07 16 01/30/17 17:00 95 01/30/17 16:00 97.5 90 18 113/81 100 01/30/17 14:50 18 01/30/17 14:20 98.0 95 18 88/65 97 01/30/17 14:13 98.5 120 18 120/74 98 01/30/17 13:57 98.0 138 18 80/65 97 01/30/17 13:37 98.0 154 18 99/54 98 01/30/17 13:20 101 01/30/17 13:03 20 01/30/17 12:29 97.5 100 18 101/74 98 01/30/17 12:00 97.5 101 18 101/74 98 01/30/17 12:00 115 I/O 01/30/17 01/30/17 01/30/17 01/31/17 01/31/17 01/31/17 07:00 15:00 23:00 07:00 15:00 23:00 Intake Total 700 ml 1200 ml 1935 ml Output Total 400 ml 400 ml Balance 300 ml 1200 ml 1535 ml Intake Oral 0 ml 1200 ml 360 ml IV Total 700 ml 1575 ml Output Urine Total 400 ml 400 ml # Voids 1 1 2 2 # Bowel Movements 0 1 1 Result Diagram: 01/30/17 0520 01/30/17 0520 Imaging Last Impressions Abdomen/Pelvis CT 01/29/17 1219 Signed Impressions: Service Date/Time: Sunday, January 29, 2017 13:38 - CONCLUSION: 1. Diffuse gaseous distention of the colon. No definite findings to indicate a colonic obstruction are seen. No free air or free fluid is present. Cameron Adamson MD Objective Remarks General: No acute distress. Heart: Regular rate and rhythm. No murmur. Lungs: Clear to auscultation bilaterally. No wheezes, rales, or rhonchi. Breathing is nonlabored. Abdomen: Soft, nontender, nondistended. Extremities: No lower extremity edema. Psych: Alert and oriented. Procedures None Urinary Catheter: No Vascular Central Line Catheter: No A/P Problem List: (1) Atrial fibrillation with RVR ICD Code: I48.91 Status: Acute (2) Abdominal pain ICD Code: R10.9 Status: Acute (3) UTI (urinary tract infection) ICD Code: N39.0 Status: Acute (4) Diabetes mellitus ICD Code: E11.9 Status: Chronic (5) Hyperlipidemia ICD Code: E78.5 Status: Chronic Assessment and Plan 1. Abdominal pain: Appreciate colorectal surgery recommendations. Follow-up as outpatient with colorectal surgery. 2. UTI: Urine culture positive for Klebsiella. Continue antibiotics. 3. Diabetes mellitus: Monitor Accu-Cheks and cover with sliding scale insulin. Oral diabetic medications on hold. 4. Hyperlipidemia: Continue statin. 5. Atrial fibrillation with RVR: Will wean off Cardizem drip. Appreciate cardiology recommendations. Started on metoprolol. Heart rate control has improved. Cardiology has recommended anticoagulation with Coumadin. As discussed with Dr. Lester by physician licensed physical therapy assistant Jenny Lou. Colorectal surgery states that it is okay to start anticoagulation. Problem Qualifiers (1) Abdominal pain: Qualified Code: R10.30 - Lower abdominal pain (2) UTI (urinary tract infection): Qualified Code: N30.01 - Acute cystitis with hematuria Fredi Bustos MD Jan 31, 2017 12:02
[2017-01-31] MEDS: cefTRIAXone INJ 1,000 MG in SODIUM CHLORIDE 0.9% INJ 100 ML IV SCH (13:31)
[2017-01-31] MEDS ORDERED: DO NOT ADM ANY ANTICOAGULANT DRUGS XX PRN (16:00)
[2017-01-31] MEDS: WARFARIN SOD 5 MG TAB PO SCH (16:59)
--- NOTE | 2017-01-31 19:53 | EKG ---
Date Performed: 01/30/2017 Time Performed: 13:07:24 PTAGE: 56 years EKG: Atrial fibrillation with uncontrolled ventricular response. Extensive ST-T changes may be d ue to myocardial ischemia Abnormal ECG NO PREVIOUS TRACING DOCTOR: Sarthak Hope Interpretating Date/Time 01/31/2017 19:53:02
--- NOTE | 2017-01-31 19:57 | EKG ---
Date Performed: 01/31/2017 Time Performed: 00:46:44 PTAGE: 56 years EKG: Sinus rhythm Low QRS voltages in precordial leads Since previous tracing, no significant change noted Borderline ECG PREVIOUS TRACING : 01/30/2017 18.51 DOCTOR: Sarthak Hope Interpretating Date/Time 01/31/2017 19:56:10
--- NOTE | 2017-01-31 19:57 | EKG ---
Date Performed: 01/30/2017 Time Performed: 18:51:44 PTAGE: 56 years EKG: Sinus rhythm . When compared to previous tracing, previously seen atrial fibrillation with very rapid ventricular response has been replaced By sinus rhythm. ST changes have improved. Normal ECG PREVIOUS TRACING : 01/30/2017 13.07 DOCTOR: Sarthak Hope Interpretating Date/Time 01/31/2017 19:56:01
[2017-02-01] VITALS: BP 104/65; PULSE 70; RESP 18; TEMP 97.9; O2SAT 99
[2017-02-01] MEDS: ENOXAPARIN SODIUM 80 MG/0.8 ML SYRINGE SQ SCH ×2 (02:00→15:26)
[2017-02-01 04:00] VITALS: BP 114/72; PULSE 68; RESP 18; TEMP 97.8; O2SAT 99
[2017-02-01] MEDS: SODIUM CHLOR 0.9% 1000 ML INJ 1,000 ML IV SCH ×2 (05:17→15:36)
[2017-02-01 07:38] LABS: PROTHROMBIN TIME - PATIENT 10.5 SEC (9.8-11.6)
[2017-02-01 08:00] VITALS: BP 142/90; PULSE 71; RESP 20; TEMP 98; O2SAT 100
[2017-02-01] MEDS: METOPROLOL TARTRATE 25 MG TAB PO SCH (08:50)
[2017-02-01] MEDS: LACTOBACILLUS ACIDOPHILUS TAB PO SCH ×3 (08:51→18:00)
[2017-02-01] MEDS: ACETAMINOPHEN 325 MG TAB PO PRN (08:53)
[2017-02-01] MEDS ORDERED: FLUCONAZOLE 100 MG TAB PO ONE (09:00)
[2017-02-01] MEDS ORDERED: metFORMIN HCL 500 MG TAB PO SCH (10:00)
[2017-02-01] MEDS ORDERED: METO25TA3 PO (11:10)
[2017-02-01] MEDS ORDERED: COUM5TAB PO (11:10)
--- NOTE | 2017-02-01 11:11 | HHI.DCPOC ---
Discharge Care Plan Diagnosis: (1) Atrial fibrillation with RVR (2) Hyperlipidemia (3) Abdominal pain (4) UTI (urinary tract infection) (5) Diabetes mellitus Goals to Promote Your Health * To prevent worsening of your condition and complications * To maintain your health at the optimal level Directions to Meet Your Goals Take your medications as prescribed Follow your dietary instruction Follow activity as directed Keep your appointments as scheduled Take your immunizations and boosters as scheduled If your symptoms worsen call your PCP, if no PCP go to Urgent Care Center or Emergency Room Smoking is Dangerous to Your Health. Avoid second hand smoke Call the 24-hour hour crisis hotline for domestic abuse at Fredi Bustos MD Feb 01, 2017 11:11
[2017-02-01 12:00] VITALS: BP 119/66; PULSE 62; RESP 20; TEMP 98; O2SAT 100
[2017-02-01] MEDS: WARFARIN SOD 5 MG TAB PO SCH (15:27)
[2017-02-01] MEDS: cefTRIAXone INJ 1,000 MG in SODIUM CHLORIDE 0.9% INJ 100 ML IV SCH (15:28)
[2017-02-01 16:00] VITALS: BP 149/89; PULSE 66; RESP 20; TEMP 97; O2SAT 100
--- NOTE | 2017-02-01 16:27 | PD.CARD.PN ---
Subjective Subjective Remarks No CP or SOB, feels better Objective Medications Current Medications Medications (Trade) Dose Ordered Sig/Edis Route Start Time Stop Time Status Last Admin Sodium Chloride 2 ml 2 ml UNSCH PRN IV FLUSH 01/29/17 12:30 (NS 1000 ml Inj) 1,000 ml @ 100 mls/hr Q10H IV 01/29/17 17:17 02/01/17 15:36 (Tylenol) 650 mg Q4H PRN PO 01/29/17 17:30 02/01/17 08:53 (Reglan Inj) 5 mg Q6H PRN IV PUSH 01/29/17 17:30 (Dulcolax Supp) 10 mg DAILY PRN IN 01/29/17 17:30 01/29/17 22:11 (Narcan Inj) 0.4 mg UNSCH PRN IV 01/29/17 17:30 (Fleets Enema (Adult)) 133 ml DAILY PRN IN 01/29/17 19:20 Morphine Sulfate 2 mg 2 mg Q6HR PRN IV PUSH 01/29/17 20:30 (Rocephin Inj/NS Inj) 100 ml @ 200 mls/hr Q24H IV 01/30/17 13:00 02/01/17 15:28 Nitroglycerin 0.4 mg 0.4 mg Q5M PRN SL 01/30/17 12:45 01/30/17 12:48 (Cardizem Inj/NS Inj) 125 ml @ 0 mls/hr TITRATE IV 01/30/17 13:15 01/30/17 13:47 (Lovenox Inj) 80 mg Q12H SQ 01/30/17 15:00 02/01/17 15:26 (Motrin) 400 mg QID PRN PO 01/30/17 16:45 01/30/17 16:51 (Lopressor) 25 mg Q12HR PO 01/30/17 22:15 02/01/17 08:50 (Lactinex) 1 tab TID PO 01/31/17 09:00 02/01/17 15:28 Warfarin Sodium 5 mg 5 mg DAILY@1600 PO 01/31/17 16:00 02/01/17 15:27 (Coumadin Consult Pharmacy) 0 ml @ 0 mls/hr UNSCH OTHER 01/31/17 12:00 (Glucophage) 1,000 mg DAILY PO 02/01/17 10:00 02/01/17 09:31 Vital Signs / I&O Vital Signs Date Time Temp Pulse Resp B/P Pulse Ox O2 Delivery O2 Flow Rate FiO2 02/01/17 16:00 97.0 66 20 149/89 100 02/01/17 12:00 98.0 62 20 119/66 100 02/01/17 08:00 98.0 71 20 142/90 100 02/01/17 07:58 Room Air 02/01/17 04:00 Room Air 02/01/17 04:00 97.8 68 18 114/72 99 02/01/17 00:00 Room Air 02/01/17 00:00 97.9 70 18 104/65 99 01/31/17 20:00 97.1 69 18 189/87 100 01/31/17 20:00 Room Air 01/31/17 20:00 75 01/31/17 18:01 96.8 67 14 136/79 100 I/O 01/31/17 01/31/17 01/31/17 02/01/17 02/01/17 02/01/17 07:00 15:00 23:00 07:00 15:00 23:00 Intake Total 1935 ml 1272 ml 1353 ml 2160 ml Output Total 400 ml Balance 1535 ml 1272 ml 1353 ml 2160 ml Intake Oral 360 ml 520 ml 2160 ml IV Total 1575 ml 1272 ml 833 ml Output Urine Total 400 ml # Voids 2 4 6 3 # Bowel Movements 1 3 1 1 Physical Exam GENERAL: In NAD SKIN: Warm and dry. HEAD: Normocephalic. EYES: No scleral icterus. No injection or drainage. NECK: Supple, trachea midline. No JVD or lymphadenopathy. CARDIOVASCULAR: Irreg, without murmurs, gallops, or rubs. RESPIRATORY: Breath sounds equal bilaterally. No accessory muscle use. GASTROINTESTINAL: Abdomen soft, non-tender, nondistended. MUSCULOSKELETAL: No cyanosis, or edema. Laboratory Laboratory Tests Test 02/01/17 07:15 Prothrombin Time 10.5 SEC Prothromb Time International 1.0 RATIO Ratio Imaging Last Impressions Abdomen/Pelvis CT 01/29/17 1219 Signed Impressions: Service Date/Time: Sunday, January 29, 2017 13:38 - CONCLUSION: 1. Diffuse gaseous distention of the colon. No definite findings to indicate a colonic obstruction are seen. No free air or free fluid is present. Cameron Adamson MD Assessment and Plan Problem List: (1) Atrial fibrillation with RVR (2) Abdominal pain (3) Diabetes mellitus (4) Hyperlipidemia Assessment and Plan Tele w SR w frequent PACs. Continue anticoagulation with warfarin (titrate outpatient) and therapy with metoprolol. OK to discharge from cardiac standpoint. F/u w Dr. De Guzman for INR monitoring (the importance d/w the patient). Problem Qualifiers (1) Abdominal pain: Qualified Code: R10.30 - Lower abdominal pain Silvia Ervin MD Feb 01, 2017 16:27
--- NOTE | 2017-02-01 16:38 | HHI.DS ---
Discharge Summary Admission Date Jan 31, 2017 at 12:00 Discharge Date: Feb 01, 2017 Admitting Diagnosis intractable abdominal pain, constipation vs ischemic colitis (1) Atrial fibrillation with RVR ICD Code: I48.91 Diagnosis: Principal (2) Abdominal pain ICD Code: R10.9 Diagnosis: Principal (3) UTI (urinary tract infection) ICD Code: N39.0 Diagnosis: Principal (4) Diabetes mellitus ICD Code: E11.9 Diagnosis: Secondary (5) Hyperlipidemia ICD Code: E78.5 Diagnosis: Secondary Procedures None Brief History - From Admission 83 years old female with history of diabetes mellitus hypertension hyperlipidemia presented to the ED complaining of severe abdominal pain 9 out of 10 constant with nausea and vomiting, and alternating diarrhea and constipation. Patient had 2-3 episodes of diarrhea on Saturday but she has been constipated without even Fleet just passing ever since. Complaining of worsening significant abdominal distention and bloating. Patient also reported seeing blood in the bottom of the toilet on the darker side, Patient started on antibiotic for upper respiratory infection about a month ago. She reported the pain is mainly on her left lower quadrant without transfer, gets slightly better with passing gas if she was able to. No chest pain or shortness of breath, subjective feverish feeling with chills, not able to tolerate by mouth intake however she does feel hungry. No previous history of abdominal surgery. She had colonoscopy by Dr. Lester 1 year ago and she reported it was negative. CBC/BMP: 01/30/17 0520 01/30/17 0520 Significant Findings Laboratory Tests Test 01/30/17 01/30/17 01/30/17 01/31/17 05:20 13:00 19:00 01:20 Chloride Level 110 MEQ/L (98-107) Creatinine 0.44 MG/DL (0.50-1.00) Random Glucose 107 MG/DL (74-106) Calcium Level 7.9 MG/DL (8.5-10.1) Total Bilirubin 1.1 MG/DL (0.2-1.0) Indirect Bilirubin 0.9 MG/DL (0.0-0.8) Aspartate Amino Transf 11 U/L (15-37) (AST/SGOT) Total Protein 5.8 GM/DL (6.4-8.2) Albumin 2.7 GM/DL (3.4-5.0) Lipase 69 U/L (73-393) Troponin I LESS THAN 0.02 LESS THAN 0.02 LESS THAN 0.02 NG/ML NG/ML NG/ML (0.02-0.05) (0.02-0.05) (0.02-0.05) Imaging Last Impressions Abdomen/Pelvis CT 01/29/17 1219 Signed Impressions: Service Date/Time: Sunday, January 29, 2017 13:38 - CONCLUSION: 1. Diffuse gaseous distention of the colon. No definite findings to indicate a colonic obstruction are seen. No free air or free fluid is present. Cameron Adamson MD PE at Discharge General: No acute distress. Heart: Regular rate and rhythm. Lungs: Clear to auscultation bilaterally. No wheezes, rales, or rhonchi. Breathing is nonlabored. Abdomen: Generalized abdominal tenderness, mildly worse over the left lower quadrant. Abdomen is soft and nondistended. Neuro: Awake and alert. Psych: Normal insight and judgement. Pt update on day of discharge Admits to yeast infection. Patient is upset due to lack of communication between staff. She was given fluconazole in the morning for yeast infection but states was not told by the nurse until later in the day that she had actually received it. She denies any palpitations, chest pain, or shortness of breath. Hospital Course Patient was admitted for abdominal pain. CT of the abdomen showed diffuse gaseous distention of the colon but no obstruction. The patient also experienced constipation followed by diarrhea and also had bloody stools. Her colorectal surgeon Dr. Amarilys Lester evaluated the patient and there was no finding of blood on digital rectal exam. She recommended patient take MiraLAX but it does not appear patient actually received this and she has had regular bowel movements. Patient was also found to have Klebsiella UTI and was started on ceftriaxone to which it is susceptible. She is to be continued on Macrobid to which it is also susceptible and patient already has this prescription. Patient is a diabetic but oral hypoglycemics were held due to contrast. Metformin was restarted today. Patient was originally supposed to be discharged on 01/30/17, but prior to discharge she started experience chest pain and palpitations. She was evaluated and found to be in A. fib on exam. EKG revealed the same with significant RVR. Patient was started on a Cardizem drip. ACS was ruled out. Patient was started on therapeutic Lovenox. Echo showed preserved EF of 60%. The patient was evaluated by cardiology and was started on metoprolol. Patient's heart rate improved and Cardizem drip was discontinued. Patient was started on warfarin on 01/31, no bridging necessary. Telemetry reviewed with frequent PACs noted yesterday afternoon, reviewed by Dr. Ervin. Dr. Lester okayed starting anticoagulation. Continue statin and Lisinopril. Cardiology advised patient continue aspirin. Patient to follow-up with her primary care physician for INR checks. Patient also suffered from a yeast infection and Diflucan was administered today. Pt Condition on Discharge: Stable Discharge Disposition: Discharge Home Discharge Time: <= 30 minutes Discharge Instructions DIET: Follow Instructions for: Heart Healthy Diet, Diabetic Diet Additional Diet Instructions: High-fiber diet Activities you can perform: Weight Bearing as Oliver Follow up Referrals: Colorectal Surgery - 1 Week with Amarilys Lester MD PCP Follow-up - 1 Week New Orders: PT/INR - Next Day New Medications: Sennosides-Docusate Sodium (Amanda-Colace) 8.6-50 Mg Tab 1 TAB PO BID Constipation #30 Ref 0 TAB Bisacodyl Supp (Bisac-Evac Supp) 10 Mg Supp 10 MG WV DAILY PRN CONSTIPATION #20 SUPP Metoprolol Tartrate (Metoprolol Tartrate) 25 Mg Tab 25 MG PO Q12HR a-fib #60 Ref 0 TAB Warfarin (Coumadin) 5 Mg Tab 5 MG PO DAILY@1600 A-fib #30 Ref 0 TAB Continued Medications: Dapagliflozin-Metformin ER 24 HR (Xigduo Xr 24 HR) 10-1,000 Mg Tab 1 TAB PO DAILY TAB Dulaglutide Inj (Trulicity Inj) 1.5 Mg/0.5 Ml Pen 1.5 MG SQ Q7D Blood Sugar Management #[address] (Duloxetine DR) 60 Mg Capdr 60 MG PO DAILY #30 Ref 0 CAP Linaclotide (Linzess) 290 Mcg Cap 290 MCG PO DAILY Ref 0 CAP Lisinopril (Lisinopril) 5 Mg Tab 5 MG PO DAILY Blood Pressure Management #30 Ref 0 TAB Metformin (Metformin) 1,000 Mg Tab 1000 MG PO DAILY With a meal Blood Sugar Management #30 Ref 0 TAB Nitrofurantoin Monohydrate Macrocrystals (Macrobid) 100 Mg Cap 100 MG PO BID Infection Days 10 Ref 0 CAP Pravastatin (Pravastatin) 40 Mg Tab 40 MG PO DAILY Cholesterol Management #30 Ref 0 TAB Additional Information Written by Jenny Lou PA-C acting as scribe for Dr. Bustos on 02/01/17 at 1600 hours. All or portions of this note were transcribed by scribe Jenny Lou PA-C. I , Dr. Fredi Bustos personally performed the history, physical exam, and medical decision making; and confirmed the accuracy of the information in the transcribed note. Authenticated by Dr. Fredi Bustos on 02/02/17 at 07:58. Jenny Luo Feb 01, 2017 16:38 Fredi Bustos MD Feb 02, 2017 07:58
[2017-04-10] MEDS ORDERED: [UNRECOGNIZED DRUG - CODE] (10:05)
[2017-04-10] MEDS ORDERED: MIRA3350 PO (10:05)
[2017-04-10] MEDS ORDERED: JANT5TAB PO (10:05)
[2017-04-10] MEDS ORDERED: NAPR220C22 (10:05)
[2017-04-10] MEDS ORDERED: ACET-898 (10:05)
[2017-04-10] MEDS ORDERED: L-LY500T4 PO (10:05)
[2017-04-10] MEDS ORDERED: CRAN405C (10:05)
[2017-04-10] MEDS ORDERED: DIPH25CA PO (10:05)
[2017-04-10] MEDS ORDERED: PRAV40TA2 PO ×2 (10:32→12:37)
[2017-04-10] MEDS ORDERED: DULO1CAP3 PO ×2 (10:32→12:37)
[2017-04-10] MEDS ORDERED: DULA0.5I SQ (10:46)
[2017-04-10] MEDS ORDERED: APIX5TAB PO (12:37)
[2017-04-25] MEDS ORDERED: CRANCAP2 PO (09:57)
[2017-04-25] MEDS ORDERED: PHEN10TA PO (09:57)
[2017-04-25] MEDS ORDERED: METF1000 PO (09:57)
== END 2017-02-01 20:35 | disposition home or self-care (01) | DRG 309 ==
LOC: PHED 11:48 → PHEDA 16:17 → PH3B 20:55 → OBSVTOIN 01-31 12:00
PROVIDERS: ADMIT Family Medicine; ATTEND Family Medicine
DX: I48.91 Unspecified atrial fibrillation (principal); N39.0 Urinary tract infection, site not specified; K31.84 Gastroparesis; E11.43 Type 2 diabetes mellitus with diabetic autonomic (poly)neuropathy; K92.1 Melena; R10.30 Lower abdominal pain, unspecified; B37.9 Candidiasis, unspecified; I10 Essential (primary) hypertension; E78.5 Hyperlipidemia, unspecified; K59.00 Constipation, unspecified; R81 Glycosuria; Z87.440 Personal history of urinary (tract) infections; B96.1 Klebsiella pneumoniae [K. pneumoniae] as the cause of diseases classified elsewhere; R19.7 Diarrhea, unspecified
CPT/HCPCS: 74177; 80048; 80053; 80076; 81001; 82550; 82552; 82948; 83605; 83615; 83690; 84484; 85025; 85610; 85730; 87040; 87077; 87086; 87186; 87493; 93005; 93306; 96365; 96375; G0378; J0696; J1644; J1650; J7030; Q9967

== ENCOUNTER 2017-02-12 21:38 | Emergency (ER) | payer OTHER ==
[~2017-02-12] VITALS: Ht 162.6 cm; Wt 81.0 kg
[~2017-02-12 21:38] MED LIST changes: -ASPI81TA82 PO; +BISA10R PR; +COUM5TAB PO; +DULA0.5I SQ; +DULO1CAP3 PO; +LINA290C PO; +LISI-519 PO; -LISI2.5T55 PO; +MACR100C2 PO; +METF1000 PO; +METO25TA3 PO; +PERI8.6T PO; -PRAV10 PO; +PRAV40TA2 PO
[2017-02-12 21:45] VITALS: BP 106/69; PULSE 87; RESP 16; TEMP 97.6; O2SAT 99
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
[2017-02-12] MEDS ORDERED: IBUPROFEN 800 MG TAB PO ONE (23:00)
[2017-04-10] MEDS ORDERED: ACET-898 (10:05)
[2017-04-10] MEDS ORDERED: [UNRECOGNIZED DRUG - CODE] (10:05)
[2017-04-10] MEDS ORDERED: JANT5TAB PO (10:05)
[2017-04-10] MEDS ORDERED: DIPH25CA PO (10:05)
[2017-04-10] MEDS ORDERED: L-LY500T4 PO (10:05)
[2017-04-10] MEDS ORDERED: MIRA3350 PO (10:05)
[2017-04-10] MEDS ORDERED: CRAN405C (10:05)
[2017-04-10] MEDS ORDERED: NAPR220C22 (10:05)
[2017-04-10] MEDS ORDERED: DULO1CAP3 PO ×2 (10:32→12:37)
[2017-04-10] MEDS ORDERED: PRAV40TA2 PO ×2 (10:32→12:37)
[2017-04-10] MEDS ORDERED: DULA0.5I SQ (10:46)
[2017-04-10] MEDS ORDERED: APIX5TAB PO (12:37)
[2017-04-25] MEDS ORDERED: METF1000 PO (09:57)
[2017-04-25] MEDS ORDERED: PHEN10TA PO (09:57)
[2017-04-25] MEDS ORDERED: CRANCAP2 PO (09:57)
== END 2017-02-13 00:02 | disposition home or self-care (01) ==
LOC: PHEFT 21:38
DX: S92.324A Nondisplaced fracture of second metatarsal bone, right foot, initial encounter for closed fracture (principal); X99.9XXA Assault by unspecified sharp object, initial encounter
CPT/HCPCS: 73630; 99283; E0113; L3260

== ENCOUNTER 2017-03-21 15:30 | Emergency (ER) | payer OTHER ==
[~2017-03-21] VITALS: Ht 162.6 cm; Wt 81.3 kg
[~2017-03-21 15:30] MED LIST changes: -BISA10R PR; -LINA290C PO; -MACR100C2 PO; -PERI8.6T PO
[2017-03-21 15:34] VITALS: BP 135/83; PULSE 73; RESP 16; TEMP 97.7; O2SAT 100
[2017-03-21] MEDS ORDERED: TETANUS/DIPHTHERIA TOXOID ADULT 0.5 ML VIAL IM ONE (16:15)
--- NOTE | 2017-03-21 16:30 | RADHPO ---
EXAM DATE/TIME: 03/21/2017 16:06 [facility] COMPARISON: No previous studies available for comparison. INDICATIONS : Trauma. Fall. Right forehead laceration. Broken top front right tooth. RADIATION DOSE: 66.33 CTDIvol (mGy) MEDICAL HISTORY : Cardiovascular disease. Diabetes mellitus type 2. SURGICAL HISTORY : None. ENCOUNTER: Initial ACUITY: 1 day PAIN SCALE: 4/10 LOCATION: cranial TECHNIQUE: Multiple contiguous axial images were obtained of the head. Using automated exposure control and adj ustment of the mA and/or kV according to patient size, radiation dose was kept as low as reasonably a chievable to obtain optimal diagnostic quality images. FINDINGS: CEREBRUM: The ventricles are normal for age. No evidence of midline shift, mass lesion, hemorrhage or acute in farction. No extra-axial fluid collections are seen. POSTERIOR FOSSA: The cerebellum and brainstem are intact. The 4th ventricle is midline. The cerebellopontine angle i s unremarkable. EXTRACRANIAL: The visualized portion of the orbits is intact. SKULL: The calvaria is intact. No evidence of skull fracture. CONCLUSION: No acute intracranial disease. Jerry Noriega MD on March 21, 2017 at 16:27 Board Certified Radiologist. This report was verified electronically.
--- NOTE | 2017-03-21 16:43 | PD ---
HPI Chief Complaint: Fall Time Seen by Provider: 15:55 Travel History International Travel<30 days: No Contact w/Intl Traveler<30days: No Traveled to known affect area: No History of Present Illness HPI 56 year-old female presents to the emergency room for evaluation of right fifth finger pain and swelling, head trauma, dental trauma, and multiple abrasions after fall prior to arrival. Patient was walking her dogs when they pulled her forward. She landed on an outstretched right hand before striking her face on the concrete. She broke her front 2 teeth. Patient denies loss of consciousness but reports feeling dizzy slightly afterward. She denies nausea or vomiting. Feels normal at this time. No significant headache. She took Aleve and Tylenol prior to arrival. She is on Coumadin for A. fib but has not taken it in over a week. Unknown last tetanus. Patient denies paresthesias. PFSH Past Medical History Hx Anticoagulant Therapy: Yes Arthritis: Yes Cancer: No Cardiovascular Problems: Yes (A. FIB) Diabetes: Yes Patient Takes Glucophage: Yes Endocrine: Yes Gastrointestinal Disorders: Yes (SATURDAY) Genitourinary: No Headaches: Yes Immune Disorder: No Musculoskeletal: Yes Neurologic: Yes Psychiatric: No Reproductive: No Respiratory: No Migraines: Yes Thyroid Disease: No Tetanus Vaccination: < 5 Years ?: Not Menopausal: Yes Past Surgical History Hysterectomy: No Other Surgery: Yes (Lt. breast) Social History Alcohol Use: No Tobacco Use: No Substance Use: No Allergies-Medications (Allergen,Severity, Reaction): Coded Allergies: No Known Allergies (Unverified , 03/21/17) Reported Meds & Prescriptions Reported Meds & Active Scripts Active Metoprolol Tartrate 25 Mg Tab 25 Mg PO Q12HR Coumadin (Warfarin) 5 Mg Tab 5 Mg PO DAILY@1600 Reported Metformin (Metformin HCl) 1,000 Mg Tab 1,000 Mg PO DAILY With a meal Xigduo Xr 24 HR (Dapagliflozin-Metformin ER 24 HR) 10-1,000 Mg Tab 1 Tab PO DAILY Duloxetine DR (Duloxetine HCl) 60 Mg Capdr 60 Mg PO DAILY Trulicity Inj (Dulaglutide Inj) 1.5 Mg/0.5 Ml Pen 1.5 Mg SQ Q7D Pravastatin 40 Mg Tab 40 Mg PO DAILY Lisinopril 5 Mg Tab 5 Mg PO DAILY Review of Systems Except as stated in HPI: all other systems reviewed are Neg Physical Exam Narrative GENERAL: Well-nourished, well-developed female in no acute distress. Afebrile. Ambulatory. SKIN: Focused skin assessment warm/dry. Multiple superficial abrasions in upper and lower extremities. Small abrasion on face. Moderate ecchymosis over the fourth and fifth right MCP joints. HEAD: Normocephalic. EYES: No scleral icterus. No injection or drainage. EARS: Bilateral pinnae and external canals appear within normal limits. Bilateral tympanic membranes without erythema, dullness or perforation. No hemotympanum. DENTAL: Teeth #8 and 9 are chipped. No malocclusion. NECK: Supple, trachea midline. No JVD or lymphadenopathy. CARDIOVASCULAR: Regular rate and rhythm without murmurs, gallops, or rubs. RESPIRATORY: Breath sounds equal bilaterally. No accessory muscle use. EXTREMITY: Right hand tender to palpation over the fifth MCP joint. Limited range of motion in the fifth finger secondary to pain. Moderate edema. Less than 2 second capillary refill. NEUROLOGICAL: Awake and alert. Cranial nerves II through XII intact. Motor and sensory grossly within normal limits. Five out of 5 muscle strength in all muscle groups. Normal speech. Data Data Last Documented VS Vital Signs Date Time Temp Pulse Resp B/P Pulse Ox O2 Delivery O2 Flow Rate FiO2 03/21/17 15:34 97.7 73 16 135/83 100 Orders Hand, Complete ([id number]) (03/21/17 ) Ct Brain W/O Iv Contrast(Rout) (03/21/17 ) Ct Facial Bones W/O Iv Cont (03/21/17 ) Tetanus/Diphtheria Tox Adult (Tetanus/Di (03/21/17 16:15) Splint Or Brace Apply/Monitor (03/21/17 17:20) Wound Care (03/21/17 17:20) Mandatory Outpatient Referral (03/21/17 17:22) Fiberglass Splint Forearm Adul (03/21/17 ) Sling Cradle Arm (03/21/17 ) MDM Medical Decision Making Medical Screen Exam Complete: Yes Emergency Medical Condition: Yes Medical Record Reviewed: Yes Differential Diagnosis Fracture versus abrasion versus dislocation versus contusion versus dental trauma Narrative Course 56-year-old female presents to the emergency room for evaluation of right hand pain, dental pain, and multiple abrasions after falling earlier today. Patient was pulled down by a dog and fell on her right hand before striking her face on the concrete. She fractured her 2 front teeth. There was no loss consciousness , nausea, vomiting. She was dizzy at first but that has subsided. Physical exam reveals multiple abrasions in bilateral upper and lower extremities. No focal neurological deficits. No evidence of intracranial hemorrhage. Because patient has history of being on Coumadin, CT of the brain was ordered. CT of brain and facial bones are negative for acute abnormality. For dental fractures , patient was given a pamphlet for dental emergencies. She was told to use over -the-counter tooth covering to decrease pain. She also has right 4th and 5th MCP joint swelling and ecchymosis. Denies paresthesias. X-ray of the right hand shows a intra-articular proximal phalanx fracture. Patient placed in ulnar gutter splint and management outpatient referral was placed. Patient told to follow up with hand surgeon within 1 week or return to the emergency room for worsening symptoms. She understands and agrees to plan. Diagnosis Primary Impression: Finger fracture, right Qualified Code: S62.646A - Closed nondisplaced fracture of proximal phalanx of right little finger, initial encounter Additional Impressions: Fractured tooth due to trauma without complication Qualified Code: S02.5XXA - Fractured tooth due to trauma without complication , closed, initial encounter Abrasion Referrals: Dentist Primary Care Physician Patient Instructions: Abrasion (ED), Finger Fracture (ED), General Instructions Additional Instructions: Rest and drink plenty of fluids. Keep wounds clean and dry. Elevate and ice hand. Alternate Tylenol and ibuprofen as directed, as needed for pain. Follow up with a hand surgeon; mandatory outpatient referral was placed. Return to emergency room for worsening symptoms, as discussed. Disposition: 01 DISCHARGE HOME Condition: Stable Supriya Shabazz March 21, 2017 16:43
--- NOTE | 2017-03-21 16:50 | RADHPO ---
EXAM DATE/TIME: 03/21/2017 16:06 [facility] COMPARISON: No previous studies available for comparison. INDICATIONS : Trauma. Fall. Right forehead laceration. Broken top front right tooth. RADIATION DOSE: 34.74 CTDIvol (mGy) MEDICAL HISTORY : Cardiovascular disease. Diabetes mellitus type 2. SURGICAL HISTORY : None. ENCOUNTER: Initial ACUITY: 1 day PAIN SCORE: 6/10 LOCATION: facial TECHNIQUE: Volumetric scanning of the facial bones was performed. Using automated exposure control and adjustme nt of the mA and/or kV according to patient size, radiation dose was kept as low as reasonably achiev able to obtain optimal diagnostic quality images. FINDINGS: ORBITS: The orbital and infraorbital osseous structures are intact. The retroconal structures have a normal configuration. No radiopaque foreign bodies are seen. NASAL BONE: The nasal bone and maxillary spine are intact ZYGOMATIC ARCHES: Symmetric without evidence of fracture. SINUSES: The maxillary, ethmoid and frontal sinuses are intact. No air-fluid levels seen. NASAL CAVITY: The nasal septum is intact and midline. The lacrimal ducts are intact. SOFT TISSUES: No radiopaque foreign bodies seen. No soft-tissue swelling is seen. INTRACRANIAL: No intracranial air seen. CRIBIFORM PLATE: Grossly intact. CONCLUSION: Normal examination for a patient of this age. Valdez Rees MD on March 21, 2017 at 16:39 Board Certified Radiologist. This report was verified electronically.
--- NOTE | 2017-03-21 17:08 | RADHPO ---
EXAM DATE/TIME: 03/21/2017 16:20 [facility] COMPARISON: No previous studies available for comparison. INDICATIONS : Patient was pulled down while walking her dog. MEDICAL HISTORY : Cardiovascular disease. Diabetes mellitus type 2. SURGICAL HISTORY : None. ENCOUNTER: Initial ACUITY: 1 day PAIN SCORE: 3/10 LOCATION: Right Hand fifth digit. FINDINGS: Three view examination of the right hand demonstrates intra-articular fracture through the base of th e proximal phalanx right fifth finger. No dislocation. No other fractures are seen. CONCLUSION: 1. Intra-articular fracture proximal phalanx right fifth finger. Valdez Rees MD on March 21, 2017 at 17:04 Board Certified Radiologist. This report was verified electronically.
[2017-04-10] MEDS ORDERED: JANT5TAB PO (10:05)
[2017-04-10] MEDS ORDERED: MIRA3350 PO (10:05)
[2017-04-10] MEDS ORDERED: DIPH25CA PO (10:05)
[2017-04-10] MEDS ORDERED: L-LY500T4 PO (10:05)
[2017-04-10] MEDS ORDERED: CRAN405C (10:05)
[2017-04-10] MEDS ORDERED: [UNRECOGNIZED DRUG - CODE] (10:05)
[2017-04-10] MEDS ORDERED: ACET-898 (10:05)
[2017-04-10] MEDS ORDERED: NAPR220C22 (10:05)
[2017-04-10] MEDS ORDERED: DULO1CAP3 PO ×2 (10:32→12:37)
[2017-04-10] MEDS ORDERED: PRAV40TA2 PO ×2 (10:32→12:37)
[2017-04-10] MEDS ORDERED: DULA0.5I SQ (10:46)
[2017-04-10] MEDS ORDERED: APIX5TAB PO (12:37)
[2017-04-25] MEDS ORDERED: PHEN10TA PO (09:57)
[2017-04-25] MEDS ORDERED: METF1000 PO (09:57)
[2017-04-25] MEDS ORDERED: CRANCAP2 PO (09:57)
== END 2017-03-21 18:01 | disposition home or self-care (01) ==
LOC: PHEFT 15:30
DX: S62.646A Nondisplaced fracture of proximal phalanx of right little finger, initial encounter for closed fracture (principal); S02.5XXA Fracture of tooth (traumatic), initial encounter for closed fracture; I48.91 Unspecified atrial fibrillation; E11.9 Type 2 diabetes mellitus without complications; W18.30XA Fall on same level, unspecified, initial encounter; Y93.K1 Activity, walking an animal; Z79.01 Long term (current) use of anticoagulants; Z23 Encounter for immunization; Z79.899 Other long term (current) drug therapy
CPT/HCPCS: 29125; 70450; 70486; 73130; 90471; 90714

== ENCOUNTER 2017-04-06 02:53 | Emergency (ER) | payer OTHER ==
[~2017-04-06] VITALS: Ht 162.6 cm; Wt 84.8 kg
[2017-04-06 03:04] VITALS: BP 143/83; PULSE 76; RESP 12; TEMP 97.5; O2SAT 100
--- NOTE | 2017-04-06 03:43 | RADHPO ---
EXAM DATE/TIME: 04/06/2017 03:28 [facility] COMPARISON: FOOT LEFT COMPLETE ([id number]), February 12, 2017, 22:19. INDICATIONS : Left dorsal foot pain. MEDICAL HISTORY : Previous left foot fracture SURGICAL HISTORY : None. ENCOUNTER: Initial ACUITY: 1 day PAIN SCORE: 8/10 LOCATION: Left foot FINDINGS: Three view examination of the left foot demonstrates no soft tissue swelling, dislocation, or fractur e. The tarsal bones appear intact. The interphalangeal and metatarsophalangeal joints are intact. The calcaneus is intact. Bony mineralization is normal. CONCLUSION: Unremarkable examination of the left foot. Saad Yu MD on April 06, 2017 at 3:41 Board Certified Radiologist. This report was verified electronically.
--- NOTE | 2017-04-06 04:42 | PD ---
HPI Chief Complaint: Musculoskeletal Complaint Time Seen by Provider: 04:43 Travel History International Travel<30 days: No Contact w/Intl Traveler<30days: No Traveled to known affect area: No History of Present Illness HPI 56-year-old female presents for complaint of left foot pain. Patient states she recently broke her left foot and had been healing well but since last evening has had increasing pain. Patient took 1 g of Tylenol earlier on Saturday and then an additional gram of Tylenol late Saturday evening without relief. Patient did not take ibuprofen. Patient another injury. Patient has not noticed any increased redness or warmth. No pallor or coolness. Patient has been wearing her support walking shoe. Pain is 8/10 in intensity. PFSH Past Medical History Narrative Medical Atrial fibrillation recent foot fracture; no tobacco use; nursing notes reviewed Hx Anticoagulant Therapy: Yes Arthritis: Yes Cancer: No Cardiovascular Problems: Yes (A. FIB) Diabetes: Yes Patient Takes Glucophage: No Endocrine: Yes Gastrointestinal Disorders: Yes (SATURDAY) Genitourinary: No Headaches: Yes Immune Disorder: No Implanted Vascular Access Dvce: No Musculoskeletal: Yes Neurologic: Yes Psychiatric: No Reproductive: No Respiratory: No Migraines: Yes Thyroid Disease: No ?: Not Menopausal: Yes Past Surgical History Hysterectomy: No Other Surgery: Yes (Lt. breast) Social History Alcohol Use: No Tobacco Use: No Substance Use: No Allergies-Medications (Allergen,Severity, Reaction): Coded Allergies: No Known Allergies (Unverified , 04/06/17) Reported Meds & Prescriptions Reported Meds & Active Scripts Active Metoprolol Tartrate 25 Mg Tab 25 Mg PO Q12HR Coumadin (Warfarin) 5 Mg Tab 5 Mg PO DAILY@1600 Reported Metformin (Metformin HCl) 1,000 Mg Tab 1,000 Mg PO DAILY With a meal Xigduo Xr 24 HR (Dapagliflozin-Metformin ER 24 HR) 10-1,000 Mg Tab 1 Tab PO DAILY Duloxetine DR (Duloxetine HCl) 60 Mg Capdr 60 Mg PO DAILY Trulicity Inj (Dulaglutide Inj) 1.5 Mg/0.5 Ml Pen 1.5 Mg SQ Q7D Pravastatin 40 Mg Tab 40 Mg PO DAILY Lisinopril 5 Mg Tab 5 Mg PO DAILY Review of Systems Except as stated in HPI: all other systems reviewed are Neg Physical Exam Narrative GENERAL: Well-developed well-nourished female in acute distress no respiratory distress SKIN: Warm and dry. MUSCULOSKELETAL: No cyanosis, or edema. Left foot no edema erythema increased warmth pallor or coolness; capillary refill brisk and less than 2 seconds per digit; no deformity ankle intact range of motion; dorsum of foot is tender to palpation. Dorsalis pedis pulses 2+ to palpation. Data Data Last Documented VS Vital Signs Date Time Temp Pulse Resp B/P Pulse Ox O2 Delivery O2 Flow Rate FiO2 04/06/17 06:56 81 18 146/81 99 Room Air 04/06/17 03:04 97.5 Orders Foot, Complete ([id number]) (04/06/17 ) Ibuprofen (Motrin) (04/06/17 04:45) [facility] Medical Decision Making Medical Screen Exam Complete: Yes Emergency Medical Condition: Yes Medical Record Reviewed: Yes Interpretation(s) Last Impressions Foot X-Ray 04/06/17 0000 Signed Impressions: Service Date/Time: Thursday, April 06, 2017 03:28 - CONCLUSION: Unremarkable examination of the left foot. Saad Yu MD Differential Diagnosis Contusion tendinitis sprain fracture Narrative Course Imaging study ordered Reading per radiologist and reviewed by me no acute fracture or bony abnormalities identified Patient given ibuprofen weight based at 800 mg Patient notes relief of pain distally over 10 in intensity after ibuprofen; patient is satisfied was x-ray response to ibuprofen and stable to be discharged to home. Diagnosis Primary Impression: Left foot pain Referrals: [facility] Cardiac Rehab as needed Primary Care Physician call for appointment Patient Instructions: General Instructions Additional Instructions: Wear cast shoe for comfort Take ibuprofen/Advil/Motrin every 6-8 hours for pain associated with inflammation; may take 600 mg as often as every 6 hours OR 800 mg as often as every 8 hours of this medication Take acetaminophen/Tylenol every 4-6 hours for [id number] pain or for fever 100.4F or greater Follow-up with your primary care provider call office on Saturday to schedule follow-up appointment Follow-up with podiatry as needed Return to the emergency department for any concerns or change in condition Med/Other Pt SpecificInfo: No Change to Meds Disposition: 01 DISCHARGE HOME Condition: Stable Samantha Chang MD April 06, 2017 04:42
[2017-04-06] MEDS ORDERED: IBUPROFEN 800 MG TAB PO ONE (04:45)
[2017-04-06 06:56] VITALS: BP 146/81; PULSE 81; RESP 18; O2SAT 99
[2017-04-10] MEDS ORDERED: L-LY500T4 PO (10:05)
[2017-04-10] MEDS ORDERED: JANT5TAB PO (10:05)
[2017-04-10] MEDS ORDERED: [UNRECOGNIZED DRUG - CODE] (10:05)
[2017-04-10] MEDS ORDERED: MIRA3350 PO (10:05)
[2017-04-10] MEDS ORDERED: ACET-898 (10:05)
[2017-04-10] MEDS ORDERED: NAPR220C22 (10:05)
[2017-04-10] MEDS ORDERED: CRAN405C (10:05)
[2017-04-10] MEDS ORDERED: DIPH25CA PO (10:05)
[2017-04-10] MEDS ORDERED: PRAV40TA2 PO ×2 (10:32→12:37)
[2017-04-10] MEDS ORDERED: DULO1CAP3 PO ×2 (10:32→12:37)
[2017-04-10] MEDS ORDERED: DULA0.5I SQ (10:46)
[2017-04-10] MEDS ORDERED: APIX5TAB PO (12:37)
[2017-04-25] MEDS ORDERED: METF1000 PO (09:57)
[2017-04-25] MEDS ORDERED: PHEN10TA PO (09:57)
[2017-04-25] MEDS ORDERED: CRANCAP2 PO (09:57)
== END 2017-04-06 07:14 | disposition home or self-care (01) ==
LOC: PHED 02:53
DX: M79.672 Pain in left foot (principal); I48.91 Unspecified atrial fibrillation; Z79.01 Long term (current) use of anticoagulants
CPT/HCPCS: 73630; 99283

== ENCOUNTER → 2017-04-10 | Outpatient (CLI) | payer OTHER ==
[~2017-04-10] MED LIST changes: +ACET-898; +APIX5TAB PO; +CRAN405C; +CRANCAP2 PO; +DIPH25CA PO; +JANT5TAB PO; +L-LY500T4 PO; +MIRA3350 PO; +NAPR220C22; +PHEN10TA PO; +[UNRECOGNIZED DRUG - CODE]
[2017-04-10 11:55] LABS: INTERNATIONAL NORMALIZED RATIO 0.9 RATIO; PROTHROMBIN TIME - PATIENT 10.1 SEC (9.8-11.6)
[2017-04-10 11:57] LABS: AUTOMATED NEUTROPHIL # 3.6 TH/MM3 (1.8-7.7); BASOPHIL % 0.3 % (0.0-2.0); EOSINOPHIL # 0.2 TH/MM3 (0-0.4); EOSINOPHIL % 3.7 % (0.0-4.0); HEMATOCRIT 41.5 % (35.0-46.0); HEMO FLAGS DIFF FINAL; LYMPH % 27.7 % (9.0-44.0); LYMPHOCYTE # 1.7 TH/MM3 (1.0-4.8); MEAN CELL VOLUME 86.5 FL (80.0-100.0); MEAN CORPUSCULAR HEMOGLOBIN 28.3 PG (27.0-34.0); MEAN CORPUSCULAR HGB CONC 32.8 % (32.0-36.0); MONO % 8.4 % (0.0-8.0); NEUT % 59.9 % (16.0-70.0); PLATELET COUNT 227 TH/MM3 (150-450); RED CELL DISTRIBUTION WIDTH 13.6 % (11.6-17.2)
[2017-04-10 13:48] LABS: ANION GAP 5 MEQ/L (5-15); AST (GOT) 25 U/L (15-37); BICARBONATE 27.3 MEQ/L (21.0-32.0); BLOOD UREA NITROGEN 15 MG/DL (7-18); CHLORIDE 106 MEQ/L (98-107); GLOMERULAR FILTRATION RATE 92 ML/MIN (>89); GLUCOSE,FASTING 219 MG/DL (74-99); POTASSIUM 4.4 MEQ/L (3.5-5.1); SODIUM (NA) 138 MEQ/L (136-145)
[2017-04-10 13:49] LABS: ALT (GPT) 35 U/L (10-53)
[2017-04-10 13:59] LABS: ALKALINE PHOSPHATASE 76 U/L (45-117); TOTAL BILIRUBIN ADULT 0.9 MG/DL (0.2-1.0)
[2017-04-10 15:48] LABS: HEMOGLOBIN A1a 1.1 %; HEMOGLOBIN Ao 82.4 %; HEMOGLOBIN LA1C 3.1 %; HEMOGLOBIN P3 5.8 %
== END ==
LOC: CLAB 11:14
PROVIDERS: ATTEND Family Medicine
DX: E11.9 Type 2 diabetes mellitus without complications (principal); I48.91 Unspecified atrial fibrillation
CPT/HCPCS: 36415; 80053; 83036; 84443; 85025; 85610

== ENCOUNTER → 2017-04-25 | Outpatient (CLI) | payer OTHER ==
[~2017-04-25] MED LIST changes: -COUM5TAB PO; -JANT5TAB PO
[2017-04-25 11:19] LABS: HDL CHOLESTEROL 47.6 MG/DL (40.0-60.0)
== END ==
LOC: CLAB 10:44
PROVIDERS: ATTEND Nurse Practitioner Family
DX: E11.9 Type 2 diabetes mellitus without complications (principal)
CPT/HCPCS: 36415; 80061

== ENCOUNTER 2017-12-02 13:49 | Inpatient (IN) | payer OTHER ==
[~2017-12-02] VITALS: Ht 162.6 cm; Wt 82.4 kg
[2017-12-02] VITALS (12 sets, daily range): BP systolic 107–162; BP diastolic 49–96; PULSE 92–132; RESP 16–23; TEMP 97.6–98.3; O2SAT 97–100
[~2017-12-02 13:49] MED LIST changes: -DIPH25CA PO; -DULA0.5I SQ; -PHEN10TA PO; +[UNRECOGNIZED DRUG - CODE] PO
[2017-12-02] MEDS ORDERED: DAPA1TAB3 PO (14:05)
[2017-12-02] MEDS ORDERED: ONDANSETRON HCL 4 MG/2 ML VIAL IVP ONE (14:15)
[2017-12-02] MEDS ORDERED: SODIUM CHLOR 0.9% 1000 ML INJ 1,000 ML IV ONE ×2 (14:15→15:30)
--- NOTE | 2017-12-02 14:18 | PD ---
HPI Chief Complaint: GI Complaint Time Seen by Provider: 14:12 Travel History International Travel<30 days: No Contact w/Intl Traveler<30days: No Traveled to known affect area: No History of Present Illness HPI The patient was seen and examined in the presence of the nurse. This is a diabetic patient whose been taking her diabetic medications but fasting for 5 days in order to try to lose weight. She has not been checking her sugars. She complains of nausea and vomiting and generalized weakness and fatigue. She is thirsty. She denies fever or chest pain. No alleviating factors. Symptoms severity is moderate. No exacerbating factors. Duration is 3 days PFSH Past Medical History Hx Anticoagulant Therapy: No Arthritis: Yes Cancer: No Cardiovascular Problems: Yes (A. ) Diabetes: Yes Patient Takes Glucophage: Yes Diminished Hearing: No Endocrine: Yes Gastrointestinal Disorders: Yes (SATURDAY) Genitourinary: No Headaches: Yes Immune Disorder: No Implanted Vascular Access Dvce: No Musculoskeletal: Yes Neurologic: Yes Psychiatric: No Reproductive: No Respiratory: No Migraines: Yes Thyroid Disease: No Influenza Vaccination: No ?: Not Menopausal: Yes Past Surgical History Hysterectomy: No Other Surgery: Yes (Lt. breast) Social History Alcohol Use: No Tobacco Use: No Substance Use: No Allergies-Medications (Allergen,Severity, Reaction): Coded Allergies: No Known Allergies (Unverified Allergy, Unknown, 12/02/17) Reported Meds & Prescriptions Reported Meds & Active Scripts Active Duloxetine DR (Duloxetine HCl) 60 Mg Capdr 60 Mg PO DAILY Reported Xigduo Xr 24 HR (Dapagliflozin-Metformin ER 24 HR) 10-1,000 Mg Tab 1 Tab PO DAILY Metformin (Metformin HCl) 1,000 Mg Tab 1,000 Mg PO DAILY With a meal Review of Systems General / Constitutional: No: Fever Eyes: No: Visual changes HENT: No: Headaches Cardiovascular: No: Chest Pain or Discomfort Respiratory: No: Shortness of Breath Gastrointestinal: Positive: Nausea, Vomiting, No: Abdominal Pain Genitourinary: No: Dysuria Musculoskeletal: Positive: Weakness, No: Pain Skin: No Rash Neurologic: Positive: Weakness Psychiatric: No: Depression Endocrine: No: Polydipsia Hematologic/Lymphatic: No: Easy Bruising Physical Exam Narrative GENERAL: Well-nourished, well-developed patient in no apparent distress. SKIN: Focused skin assessment reveals no rash and nodules. Skin is Warm and dry. HEAD: Atraumatic. Normocephalic. EYES: Pupils equal and round. No scleral icterus. No injection or drainage. ENT: No nasal bleeding or discharge. Mucous membranes pink and moist. NECK: Trachea midline. No JVD. CARDIOVASCULAR: Regular rate and rhythm. No murmur appreciated. RESPIRATORY: No accessory muscle use. Clear to auscultation. Breath sounds equal bilaterally. GASTROINTESTINAL: Abdomen soft, non-tender, nondistended. Hepatic and splenic margins not palpable. MUSCULOSKELETAL: No obvious deformities. No clubbing. No cyanosis. No edema. NEUROLOGICAL: Awake and alert. No obvious cranial nerve deficits. Motor grossly within normal limits. Normal speech. PSYCHIATRIC: Appropriate mood and affect; insight and judgment normal. Data Data Last Documented VS Vital Signs Date Time Temp Pulse Resp B/P (MAP) Pulse Ox O2 Delivery O2 Flow Rate FiO2 12/02/17 16:38 100 18 160/74 (102) 97 Room Air 12/02/17 13:53 98.3 Orders Orders Complete Blood Count With Diff (12/02/17 14:15) Comprehensive Metabolic Panel (12/02/17 14:15) Sodium Chlor 0.9% 1000 Ml Inj (Ns 1000 M (12/02/17 14:15) Ondansetron Inj (Zofran Inj) (12/02/17 14:15) Blood Glucose (12/02/17 14:15) Chest, Single Ap (12/02/17 ) Arterial Blood Gas (Abg) (12/02/17 ) Sodium Chlor 0.9% 1000 Ml Inj (Ns 1000 M (12/02/17 15:30) Urinalysis - C+S If Indicated (12/02/17 15:37) Sodium Bicarbonate 8.4% Inj (Sodium Bica (12/02/17 15:45) Lactic Acid (12/02/17 15:44) Sodium Bicarbonate 8.4% Inj (Sodium Bica (12/02/17 16:00) Urine Culture (12/02/17 15:40) Beta Hydroxybutyrate (Acetone) (12/02/17 16:05) Insulin Human Regular Inj (Novolin R Inj (12/02/17 16:30) Admit Order (Ed Use Only) (12/02/17 16:58) Labs Laboratory Tests Test 12/02/17 14:30 12/02/17 14:55 12/02/17 15:26 12/02/17 15:40 White Blood Count 19.8 TH/MM3 Red Blood Count 6.14 MIL/MM3 Hemoglobin 17.4 GM/DL Hematocrit 53.0 % Mean Corpuscular Volume 86.4 FL Mean Corpuscular Hemoglobin 28.4 PG Mean Corpuscular Hemoglobin Concent 32.8 % Red Cell Distribution Width 12.3 % Platelet Count 418 TH/MM3 Mean Platelet Volume 10.5 FL Neutrophils (%) (Auto) 89.8 % Lymphocytes (%) (Auto) 3.4 % Monocytes (%) (Auto) 4.1 % Eosinophils (%) (Auto) 0.1 % Basophils (%) (Auto) 2.6 % Neutrophils # (Auto) 17.8 TH/MM3 Lymphocytes # (Auto) 0.7 TH/MM3 Monocytes # (Auto) 0.8 TH/MM3 Eosinophils # (Auto) 0.0 TH/MM3 Basophils # (Auto) 0.5 TH/MM3 CBC Comment AUTO DIFF Differential Comment AUTO DIFF CONFIRMED Platelet Estimate NORMAL Platelet Morphology Comment NORMAL Blood Urea Nitrogen 21 MG/DL Creatinine 1.30 MG/DL Random Glucose 264 MG/DL Total Protein 8.5 GM/DL Albumin 3.8 GM/DL Calcium Level 8.5 MG/DL Alkaline Phosphatase 99 U/L Aspartate Amino Transf (AST/SGOT) 22 U/L Alanine Aminotransferase (ALT/SGPT) 30 U/L Total Bilirubin 0.7 MG/DL Sodium Level 135 MEQ/L Potassium Level 4.1 MEQ/L Chloride Level 105 MEQ/L Carbon Dioxide Level 8.8 MEQ/L Anion Gap 21 MEQ/L Estimat Glomerular Filtration Rate 42 ML/MIN B-Hydroxybutyrate 7.42 MMOL/L Blood Gas Puncture Site LT RADIAL Blood Gas Patient Temperature 98.6 Blood Gas HCO3 5 mmol/L Blood Gas Base Excess -23.9 mmol/L Blood Gas Oxygen Saturation 95 % Arterial Blood pH 7.08 Arterial Blood Partial Pressure CO2 16 mmHG Arterial Blood Partial Pressure O2 120 mmHG Arterial Blood Oxygen Content 21.5 Vol % Arterial Blood Carboxyhemoglobin 1.0 % Arterial Blood Methemoglobin 1.6 % Blood Gas Hemoglobin 16.0 G/DL Oxygen Delivery Device ROOM AIR Blood Gas Inspired Oxygen 21 % Urine Color YELLOW Urine Turbidity CLEAR Urine pH 5.5 Urine Specific [place] 1.025 Urine Protein 100 mg/dL Urine Glucose (UA) 500 mg/dL Urine Ketones 80 OR GREATER mg/dL Urine Occult Blood MOD Urine Nitrite NEG Urine Bilirubin NEG Urine Leukocyte Esterase NEG Urine RBC 0-3 /hpf Urine WBC 9-14 /hpf Urine Squamous Epithelial Cells 0-5 /hpf Urine Bacteria RARE /hpf Urine Mucus FEW /lpf Microscopic Urinalysis Comment CULTURE INDICATED Test 12/02/17 16:15 Lactic Acid Level 2.0 mmol/L MDM Medical Decision Making Medical Screen Exam Complete: Yes Emergency Medical Condition: Yes Medical Record Reviewed: Yes Differential Diagnosis Hypoglycemia, DKA, gastroenteritis Narrative Course I have reviewed the patient's electronic medical record. Accu-Chek is 280 IV placed CBC shows leukocytosis metabolic profile shows markedly abnormal low bicarbonate I gave her IV Zofran and 1 L normal saline IV bolus I ordered additional studies after the low bicarbonate Lactate is 2.0 Beta hydroxybutyrate is 7.62 Urinalysis shows ketones I gave her second liter normal saline IV and 2 A sodium bicarbonate and 6 units IV regular insulin ABG reveals pH of 7.07 Obtaining labs was challenging and I used ultrasound guidance to access the right femoral vein without complication and pulled blood from her. Second IV was placed I reviewed the case in detail with logistics engineering manager Dr. Graves He is come down to the ER and evaluated the patient Patient will be admitted to intensive care on an insulin drip for DKA Critical Care Narrative Aggregate critical care time was 40 minutes. Time to perform other separately billable procedures was not included in the critical care time. My time did not include minutes spent treating any other patients simultaneously or on activities that did not directly contribute to the patient's treatment. The services I provided to this patient were to treat and/or prevent clinically significant deterioration that could result in: Cardiac arrhythmia, metabolic instability, cardiopulmonary arrest I provided critical care services requiring my management, as noted below: Chart data review, documentation time, medication orders and management, vital sign assessments/reviewing monitor data, ordering and reviewing lab tests, ordering and interpreting/reviewing x-rays and diagnostic studies, care of the patient and discussion of the patient with the admitting physicians. Diagnosis Primary Impression: DKA (diabetic ketoacidosis) Qualified Codes: E11.10 - Type 2 diabetes mellitus with ketoacidosis without coma Admitting Information Admitting Physician Requests: Admit Fredi Crowley MD Dec 02, 2017 14:18
[2017-12-02 14:38] LABS: AUTOMATED NEUTROPHIL # 17.8 TH/MM3 (1.8-7.7); BASOPHIL # 0.5 TH/MM3 (0-0.2); BASOPHIL % 2.6 % (0.0-2.0); EOSINOPHIL % 0.1 % (0.0-4.0); HEMOGLOBIN 17.4 GM/DL (11.6-15.3); LYMPH % 3.4 % (9.0-44.0); LYMPHOCYTE # 0.7 TH/MM3 (1.0-4.8); MEAN CELL VOLUME 86.4 FL (80.0-100.0); MEAN CORPUSCULAR HEMOGLOBIN 28.4 PG (27.0-34.0); MEAN CORPUSCULAR HGB CONC 32.8 % (32.0-36.0); MEAN PLATELET VOLUME 10.5 FL (7.0-11.0); MONO % 4.1 % (0.0-8.0); MONOCYTE # 0.8 TH/MM3 (0-0.9); NEUT % 89.8 % (16.0-70.0); PLATELET COUNT 418 TH/MM3 (150-450); RED BLOOD COUNT 6.14 MIL/MM3 (4.00-5.30); RED CELL DISTRIBUTION WIDTH 12.3 % (11.6-17.2); WHITE BLOOD COUNT 19.8 TH/MM3 (4.0-11.0)
--- NOTE | 2017-12-02 15:05 | RADRPT ---
EXAM DATE/TIME: 12/02/2017 14:44 [facility] COMPARISON: No previous studies available for comparison. INDICATIONS : Short of breath, vomiting, diarrhea. MEDICAL HISTORY : Cardiovascular disease. Diabetes mellitus type II. SURGICAL HISTORY : None. ENCOUNTER: Initial ACUITY: 2 days PAIN SCORE: 0/10 LOCATION: Bilateral chest FINDINGS: A single view of the chest demonstrates the lungs to be symmetrically aerated without evidence of mas s, infiltrate or effusion. The cardiomediastinal contours are unremarkable. Osseous structures are intact. CONCLUSION: No acute disease. Timo Adamson MD FACR on December 02, 2017 at 15:03 Board Certified Radiologist. This report was verified electronically.
[2017-12-02 15:11] LABS: CHLORIDE 105 MEQ/L (98-107); SODIUM (NA) 135 MEQ/L (136-145)
[2017-12-02 15:16] LABS: ALBUMIN 3.8 GM/DL (3.4-5.0); BICARBONATE 8.8 MEQ/L (21.0-32.0); CALCIUM 8.5 MG/DL (8.5-10.1); GLUCOSE,RANDOM 264 MG/DL (74-106)
[2017-12-02 15:17] LABS: BLOOD UREA NITROGEN 21 MG/DL (7-18)
[2017-12-02 15:19] LABS: ALT (GPT) 30 U/L (10-53); AST (GOT) 22 U/L (15-37); GLOMERULAR FILTRATION RATE 42 ML/MIN (>89)
[2017-12-02 15:21] LABS: TOTAL BILIRUBIN ADULT 0.7 MG/DL (0.2-1.0); TOTAL PROTEIN 8.5 GM/DL (6.4-8.2)
[2017-12-02 15:22] LABS: ALKALINE PHOSPHATASE 99 U/L (45-117)
[2017-12-02] MEDS ORDERED: DAPA1TAB8 PO (15:41)
[2017-12-02] MEDS ORDERED: SODIUM BICARBONATE 8.4% INJ 50 MEQ/50 ML SYR IV PUSH ONE ×2 (15:45)
[2017-12-02 15:50] LABS: BLOOD, URINE MOD (NEG); GLUCOSE,URINE 500 mg/dL (NEG); KETONE, URINE 80 OR GREATER mg/dL (NEG); NITRITE,URINE NEG (NEG); PH, URINE 5.5 (5.0-8.5); URINE LEUKOCYTE ESTERASE NEG (NEG)
[2017-12-02] MEDS ORDERED: SODIUM BICARBONATE 8.4% SOLN 50 MEQ/50 ML VIAL IV PUSH ONE (16:00)
[2017-12-02 16:02] LABS: BILIRUBIN, URINE NEG (NEG)
[2017-12-02 16:03] LABS: URINE COLOR YELLOW (YELLW/STRAW)
[2017-12-02 16:04] LABS: MUCUS URINE FEW /lpf (OCC); RBC, URINE 0-3 /hpf (0-3)
[2017-12-02 16:05] LABS: BACTERIA, URINE RARE /hpf; SQUAMOUS EPITHELIAL CELL URINE 0-5 /hpf (0-5)
[2017-12-02] MEDS ORDERED: INSULIN HUMAN REGULAR 1,000 UNITS/10 ML VIAL IV PUSH ONE (16:30)
[2017-12-02] MEDS ORDERED: POTASSIUM CHLOR 40 MEQ PREMIX 100 ML IV PRN ×2 (17:00)
[2017-12-02] MEDS ORDERED: BISACODYL 10 MG SUPP RECTAL PRN (17:00)
[2017-12-02] MEDS ORDERED: MISCELLANEOUS NURSING INFORMATION XX SCH ×2 (17:00)
[2017-12-02] MEDS ORDERED: MAGNESIUM HYDROXIDE SUSP 30 ML CUP PO PRN (17:00)
[2017-12-02] MEDS: SODIUM CHLOR 0.9% 1000 ML INJ 1,000 ML IV SCH ×2 (17:00→21:00)
[2017-12-02] MEDS ORDERED: RESP: ALBUTEROL 2.5 MG/IPRATROPIUM 0.5 MG NEB (PRN) INH (17:00)
[2017-12-02] MEDS ORDERED: SODIUM BICARBONATE 8.4% SOLN 50 MEQ/50 ML VIAL IV PUSH PRN ×2 (17:00)
[2017-12-02] MEDS ORDERED: SENNOSIDES 8.6 MG TAB PO PRN (17:00)
[2017-12-02] MEDS ORDERED: SODIUM PHOSPHATE INJ 15 MMOL in SODIUM CHLORIDE 0.9% INJ 100 ML IV PRN (17:00)
[2017-12-02] MEDS ORDERED: LACTULOSE SYRUP 20 GM/30 ML CUP PO PRN (17:00)
[2017-12-02] MEDS ORDERED: POTASSIUM CHLOR 20 MEQ PREMIX 100 ML IV PRN ×4 (17:00)
[2017-12-02] MEDS ORDERED: CHLORHEXIDINE GLUCONATE 2 % 1 PACK (2 CLOTHS) TOP PRN ×2 (17:00)
[2017-12-02] MEDS ORDERED: INSULIN REGULAR (IV INFUSION) 100 UNITS in SODIUM CHLORIDE 0.9% INJ 99 ML IV PRN (17:00)
--- NOTE | 2017-12-02 17:55 | HHI.HP ---
HPI Service Critical Care Medicine Primary Care Physician Alexandra De Guzman D.O. Admission Diagnosis DKA Diagnosis: (1) Systemic inflammatory response syndrome (2) DKA (diabetic ketoacidosis) Diagnosis: Principal (3) Leukocytosis Diagnosis: Principal (4) Dehydration Diagnosis: Principal (5) Metabolic acidosis Diagnosis: Principal (6) Acute renal failure Diagnosis: Principal Chief Complaint: Nausea vomiting Travel History International Travel<30 Days: No Contact w/Intl Traveler <30 Da: No Traveled to Known Affected Are: No History of Present Illness 57-year-old female with known history of diabetes, hypertension, hyperlipidemia, history of atrial fibrillation who presented to hospital because acute onset of nausea vomiting. Patient states that she has been doing a fasting since last Saturday which is 6 days ago where it would appear that she is only taking in approximately 400 lizbeth daily. She is drinking one half of a protein shake daily, taking thrive powder supplement and multivitamin. Patient was doing well and states that she is lost approximately 11 pounds. However at approximately 2:00 this morning she woke up with severely violent nausea and vomiting. It was relentless until she came to the hospital. She is not been able tolerate any liquid or solid. Patient had workup done emergency department found to have diabetic ketoacidosis and is recommended patient be admitted the ICU for further management care. Review of Systems Gastrointestinal: COMPLAINS OF: Nausea, Vomiting Past Family Social History Allergies: Coded Allergies: No Known Allergies (Unverified Allergy, Unknown, 12/02/17) Past Medical History Diabetes Hypertension Hyperlipidemia Past Surgical History Left breast lump removal Reported Medications Reported Meds & Active Scripts Active Duloxetine DR (Duloxetine HCl) 60 Mg Capdr 60 Mg PO DAILY Reported Xigduo Xr 24 HR (Dapagliflozin-Metformin ER 24 HR) 10-1,000 Mg Tab 1 Tab PO DAILY Metformin (Metformin HCl) 1,000 Mg Tab 1,000 Mg PO DAILY With a meal Family History Family history is unknown, patient is adopted Social History Patient denies any tobacco, alcohol or illicit drugs Physical Exam Vital Signs Vital Signs Date Time Temp Pulse Resp B/P (MAP) Pulse Ox O2 Delivery O2 Flow Rate FiO2 12/02/17 16:38 100 18 160/74 (102) 97 Room Air 12/02/17 16:10 110 18 158/78 (104) 100 Room Air 12/02/17 13:53 98.3 132 16 162/96 (829) 99 Physical Exam GENERAL: Well-developed, well-nourished, in no acute distress. alert and orientated HEENT: Head is normocephalic without any lesions or masses noted. Facial features are symmetric. Eyes: Pupils equal round reactive to light. Extraocular muscles are intact. Conjunctivae were clear. Oropharyngeal: Pharynx without any erythema edema. Tongue is midline without deviation. Buccal mucosa is moist without any masses or lesions NECK: Supple without any masses. Trachea midline no deviation. No JVD, no bruits are appreciated CARDIAC: Regular rhythm, regular rate. S1/S2 are heard. No murmurs gallops or rubs. LUNGS: Clear to auscultation bilaterally. No wheeze, rhonchi or rales. No use of accessory muscles on inspiration or expiration. ABDOMEN: Soft, nontender. Nondistended. Bowel sounds heard in all 4 quadrants. No organomegaly or masses. Negative rebound, negative guarding EXTREMITIES: No edema, pulses are equal bilaterally. No cyanosis or clubbing NEUROLOGY: Mood and affect appear appropriate. Cranial nerves II through XII grossly intact. Muscle strength 5/5 in upper and lower extremities bilaterally. Deep tendon reflexes are 2+ in upper and lower extremities bilaterally. Laboratory Laboratory Tests Test 12/02/17 14:30 12/02/17 14:55 12/02/17 15:26 12/02/17 15:40 White Blood Count 19.8 Red Blood Count 6.14 Hemoglobin 17.4 Hematocrit 53.0 Mean Corpuscular Volume 86.4 Mean Corpuscular Hemoglobin 28.4 Mean Corpuscular Hemoglobin Concent 32.8 Red Cell Distribution Width 12.3 Platelet Count 418 Mean Platelet Volume 10.5 Neutrophils (%) (Auto) 89.8 Lymphocytes (%) (Auto) 3.4 Monocytes (%) (Auto) 4.1 Eosinophils (%) (Auto) 0.1 Basophils (%) (Auto) 2.6 Neutrophils # (Auto) 17.8 Lymphocytes # (Auto) 0.7 Monocytes # (Auto) 0.8 Eosinophils # (Auto) 0.0 Basophils # (Auto) 0.5 CBC Comment AUTO DIFF Differential Comment AUTO DIFF CONFIRMED Platelet Estimate NORMAL Platelet Morphology Comment NORMAL Blood Urea Nitrogen 21 Creatinine 1.30 Random Glucose 264 Total Protein 8.5 Albumin 3.8 Calcium Level 8.5 Alkaline Phosphatase 99 Aspartate Amino Transf (AST/SGOT) 22 Alanine Aminotransferase (ALT/SGPT) 30 Total Bilirubin 0.7 Sodium Level 135 Potassium Level 4.1 Chloride Level 105 Carbon Dioxide Level 8.8 Anion Gap 21 Estimat Glomerular Filtration Rate 42 B-Hydroxybutyrate 7.42 Blood Gas Puncture Site LT RADIAL Blood Gas Patient Temperature 98.6 Blood Gas HCO3 5 Blood Gas Base Excess -23.9 Blood Gas Oxygen Saturation 95 Arterial Blood pH 7.08 Arterial Blood Partial Pressure CO2 16 Arterial Blood Partial Pressure O2 120 Arterial Blood Oxygen Content 21.5 Arterial Blood Carboxyhemoglobin 1.0 Arterial Blood Methemoglobin 1.6 Blood Gas Hemoglobin 16.0 Oxygen Delivery Device ROOM AIR Blood Gas Inspired Oxygen 21 Urine Color YELLOW Urine Turbidity CLEAR Urine pH 5.5 Urine Specific [place] 1.025 Urine Protein 100 Urine Glucose (UA) 500 Urine Ketones 80 OR GREATER Urine Occult Blood MOD Urine Nitrite NEG Urine Bilirubin NEG Urine Leukocyte Esterase NEG Urine RBC 0-3 Urine WBC 9-14 Urine Squamous Epithelial Cells 0-5 Urine Bacteria RARE Urine Mucus FEW Microscopic Urinalysis Comment CULTURE INDICATED Test 12/02/17 16:15 Lactic Acid Level 2.0 Date/Time Source Procedure Growth Status 12/02/17 15:40 Urine Clean Catch Urine Culture Pending Received Result Diagram: 12/02/17 1430 12/02/17 1455 Imaging Last Impressions Chest X-Ray 12/02/17 0000 Signed Impressions: Service Date/Time: Saturday, December 02, 2017 14:44 - CONCLUSION: No acute disease. Timo Adamson MD FACR Septic Shock Reassessment Septic shock perfusion: reassessment completed Caprini VTE Risk Assessment Caprini VTE Risk Assessment: Mod/High Risk (score >= 2) Caprini Risk Assessment Model Point Value = 1 Point Value = 2 Point Value = 3 Point Value = 5 Age 41-60 Minor surgery BMI > 25 kg/m2 Swollen legs Varicose veins or History of unexplained or recurrent spontaneous Oral contraceptives or hormone replacement Sepsis (< 1 month) Serious lung disease, including pneumonia (< 1 month) Abnormal pulmonary function Acute myocardial infarction Congestive heart failure (< 1 month) History of inflammatory bowel disease Medical patient at bed rest Age 61-74 Arthroscopic surgery Major open surgery (> 45 min) Laparoscopic surgery (> 45 min) Malignancy Confined to bed (> 72 hours) Immobilizing plaster cast Central venous access Age >= 75 History of VTE Family history of VTE Factor V Leiden Prothrombin [id number] Lupus anticoagulant Anticardiolipin antibodies Elevated serum homocysteine Heparin-induced thrombocytopenia Other congenital or acquired thrombophilia Stroke (< 1 month) Elective arthroplasty Hip, pelvis, or leg fracture Acute spinal cord injury (< 1 month) Prophylaxis Regimen Total Risk Factor Score Risk Level Prophylaxis Regimen 0-1 Low Early ambulation 2 Moderate Order ONE of the following: *Sequential Compression Device (SCD) *Heparin 5000 units SQ BID 3-4 Higher Order ONE of the following medications: *Heparin 5000 units SQ TID *Enoxaparin/Lovenox 40 mg SQ daily (WT < 150 kg, CrCl > 30 mL/min) *Enoxaparin/Lovenox 30 mg SQ daily (WT < 150 kg, CrCl > 10-29 mL/min) *Enoxaparin/Lovenox 30 mg SQ BID (WT < 150 kg, CrCl > 30 mL/min) AND/OR *Sequential Compression Device (SCD) 5 or more Highest Order ONE of the following medications: *Heparin 5000 units SQ TID (Preferred with Epidurals) *Enoxaparin/Lovenox 40 mg SQ daily (WT < 150 kg, CrCl > 30 mL/min) *Enoxaparin/Lovenox 30 mg SQ daily (WT < 150 kg, CrCl > 10-29 mL/min) *Enoxaparin/Lovenox 30 mg SQ BID (WT < 150 kg, CrCl > 30 mL/min) AND *Sequential Compression Device (SCD) Assessment and Plan Problem List: (1) Systemic inflammatory response syndrome ICD Code: R65.10 - Systemic inflammatory response syndrome (SIRS) of non- infectious origin without acute organ dysfunction (2) DKA (diabetic ketoacidosis) ICD Code: E13.10 - Other specified diabetes mellitus with ketoacidosis without coma Status: Acute (3) Metabolic acidosis ICD Code: E87.2 - Acidosis (4) Acute renal failure ICD Code: N17.9 - Acute kidney failure, unspecified (5) Dehydration ICD Code: E86.0 - Dehydration (6) Leukocytosis ICD Code: D72.829 - Elevated white blood cell count, unspecified (7) Urinary tract infection ICD Code: N39.0 - Urinary tract infection, site not specified Assessment and Plan NEUROLOGY Clinically stable, continue monitor neurological function Avoid sedatives PULMONOLOGY Clinically stable Maintain O2 supplementation maintain O2 sats greater than 92% Incentive spirometry CARDIOLOGY History of hypertension History of hyperlipidemia Vasotec/Apresoline as needed for blood pressure Monitor blood pressure to keep map greater than 65 GASTROENTEROLOGY Nothing by mouth at this time Pepcid for GI protection RENAL Acute renal failure Metabolic acidosis Status post 2 amps sodium bicarbonate Continue IV fluid hydration Monitor renal function Avoid nephrotoxins Electrolyte replacement per IV insulin protocol INFECTIOUS DISEASE Systemic inflammatory response syndrome secondary to diabetic ketoacidosis Leukocytosis Urinary tract infection Patient started on Rocephin empirically Await urine culture for appropriate antibiotics ENDOCRINOLOGY Diabetic ketoacidosis ICU insulin IV protocol HEMATOLOGY Monitor CBC, transfuse if hemoglobin less than 7.0 PROPHYLAXIS GI protection with Pepcid DVT prevention with subcutaneous heparin LINES Peripheral IVs Critical care management 60 minutes excluding procedures Problem Qualifiers (1) DKA (diabetic ketoacidosis): Qualified Codes: E11.10 - Type 2 diabetes mellitus with ketoacidosis without coma Fredi Kelley Dec 02, 2017 17:55
[2017-12-02] MEDS: DEXT 5%-NACL 0.9% 1000 ML INJ 1,000 ML IV SCH ×2 (17:59→23:09)
[2017-12-02] MEDS ORDERED: hydrALAZINE HCL 20 MG/ML VIAL IV PUSH PRN (18:00)
[2017-12-02] MEDS ORDERED: ENALAPRILAT 1.25 MG/ML VIAL IV PUSH PRN (18:00)
[2017-12-02] MEDS: cefTRIAXone INJ 1,000 MG in SODIUM CHLORIDE 0.9% INJ 100 ML IV SCH (18:37)
[2017-12-02] MEDS: HEPARIN SODIUM - SQ 10,000 UNITS/ML VIAL SQ SCH (18:37)
[2017-12-02] MEDS: DOCUSATE SODIUM 50 MG/SENNA 8.6 MG TAB PO SCH (21:00)
[2017-12-02 21:03] LABS: CALCIUM 7.7 MG/DL (8.5-10.1); MAGNESIUM 2.1 MG/DL (1.5-2.5); PHOSPHORUS 1.3 MG/DL (2.5-4.9)
[2017-12-02] MEDS: POTASSIUM CHLOR 20 MEQ PREMIX 100 ML IV PRN (21:55)
[2017-12-02] MEDS: FAMOTIDINE 20 MG/2 ML VIAL IV PUSH SCH (22:02)
[2017-12-03] VITALS (30 sets, daily range): BP systolic 87–127; BP diastolic 48–62; PULSE 76–96; RESP 13–30; TEMP 98–98.8; O2SAT 97–100
[2017-12-03] MEDS: POTASSIUM CHLOR 20 MEQ PREMIX 100 ML IV PRN ×4 (00:08→09:11)
[2017-12-03] MEDS: CHLORHEXIDINE GLUCONATE 2 % 1 PACK (2 CLOTHS) TOP SCH (02:38)
[2017-12-03 03:13] LABS: CHLORIDE 114 MEQ/L (98-107); SODIUM (NA) 140 MEQ/L (136-145)
[2017-12-03 03:17] LABS: CALCIUM 7.6 MG/DL (8.5-10.1)
[2017-12-03 03:31] LABS: ALKALINE PHOSPHATASE 73 U/L (45-117); ALT (GPT) 20 U/L (10-53); AST (GOT) 14 U/L (15-37); BICARBONATE 16.6 MEQ/L (21.0-32.0); BLOOD UREA NITROGEN 13 MG/DL (7-18); CREATININE 0.87 MG/DL (0.50-1.00); GLOMERULAR FILTRATION RATE 67 ML/MIN (>89); GLUCOSE,RANDOM 173 MG/DL (74-106); PHOSPHORUS 0.6 MG/DL (2.5-4.9); TOTAL BILIRUBIN ADULT 0.5 MG/DL (0.2-1.0); TOTAL PROTEIN 6.7 GM/DL (6.4-8.2)
[2017-12-03] MEDS: DEXT 5%-NACL 0.9% 1000 ML INJ 1,000 ML IV SCH ×2 (03:43→09:34)
[2017-12-03] MEDS ORDERED: CHLORHEXIDINE GLUCONATE 2 % 1 PACK (2 CLOTHS) TOP SCH (04:00)
[2017-12-03] MEDS: HEPARIN SODIUM - SQ 10,000 UNITS/ML VIAL SQ SCH ×2 (05:40→18:21)
[2017-12-03 08:42] LABS: BICARBONATE 17.5 MEQ/L (21.0-32.0); CALCIUM 7.3 MG/DL (8.5-10.1); CREATININE 0.75 MG/DL (0.50-1.00); MAGNESIUM 2.2 MG/DL (1.5-2.5); PHOSPHORUS 1.1 MG/DL (2.5-4.9)
[2017-12-03 08:56] LABS: CALCIUM-PROTEIN CORRECTED 7.7 MG/DL (8.5-10.1); TOTAL PROTEIN 6.3 GM/DL (6.4-8.2)
[2017-12-03] MEDS: FAMOTIDINE 20 MG/2 ML VIAL IV PUSH SCH ×2 (09:12→22:48)
[2017-12-03] MEDS: DOCUSATE SODIUM 50 MG/SENNA 8.6 MG TAB PO SCH ×2 (09:12→22:48)
[2017-12-03 10:46] LABS: AUTOMATED NEUTROPHIL # 7.5 TH/MM3 (1.8-7.7); BASOPHIL # 0.1 TH/MM3 (0-0.2); BASOPHIL % 1.2 % (0.0-2.0); EOSINOPHIL % 0.1 % (0.0-4.0); HEMOGLOBIN 12.9 GM/DL (11.6-15.3); LYMPH % 14.1 % (9.0-44.0); LYMPHOCYTE # 1.4 TH/MM3 (1.0-4.8); MEAN CELL VOLUME 86.9 FL (80.0-100.0); MEAN CORPUSCULAR HEMOGLOBIN 27.9 PG (27.0-34.0); MEAN CORPUSCULAR HGB CONC 32.1 % (32.0-36.0); MEAN PLATELET VOLUME 10.5 FL (7.0-11.0); MONO % 9.2 % (0.0-8.0); MONOCYTE # 0.9 TH/MM3 (0-0.9); NEUT % 75.4 % (16.0-70.0); PLATELET COUNT 206 TH/MM3 (150-450); RED CELL DISTRIBUTION WIDTH 13.1 % (11.6-17.2); WHITE BLOOD COUNT 9.9 TH/MM3 (4.0-11.0)
[2017-12-03 12:31] LABS: AUTOMATED NEUTROPHIL # 7.8 TH/MM3 (1.8-7.7); BASOPHIL % 0.2 % (0.0-2.0); EOSINOPHIL % 0.3 % (0.0-4.0); HEMATOCRIT 38.5 % (35.0-46.0); HEMOGLOBIN 12.9 GM/DL (11.6-15.3); LYMPH % 20.5 % (9.0-44.0); LYMPHOCYTE # 2.2 TH/MM3 (1.0-4.8); MEAN CELL VOLUME 84.7 FL (80.0-100.0); MEAN CORPUSCULAR HEMOGLOBIN 28.5 PG (27.0-34.0); MEAN CORPUSCULAR HGB CONC 33.6 % (32.0-36.0); MEAN PLATELET VOLUME 9.2 FL (7.0-11.0); MONOCYTE # 0.8 TH/MM3 (0-0.9); PLATELET COUNT 189 TH/MM3 (150-450); RED BLOOD COUNT 4.54 MIL/MM3 (4.00-5.30); RED CELL DISTRIBUTION WIDTH 12.4 % (11.6-17.2); WHITE BLOOD COUNT 10.8 TH/MM3 (4.0-11.0)
[2017-12-03 12:50] LABS: CALCIUM 7.6 MG/DL (8.5-10.1)
[2017-12-03 12:51] LABS: BICARBONATE 16.6 MEQ/L (21.0-32.0)
[2017-12-03 12:54] LABS: CREATININE 0.69 MG/DL (0.50-1.00)
[2017-12-03] MEDS ORDERED: DEXTROSE 50% IN WATER 50 ML VIAL(D50) IV PUSH PRN (13:30)
[2017-12-03] MEDS ORDERED: GLUCAGON 1 MG/ML VIAL OTHER PRN (13:30)
[2017-12-03] MEDS ORDERED: INSULIN DETEMIR 100 UNITS/ML VIAL SQ SCH (14:00)
[2017-12-03] MEDS: INSULIN NovoLIN REGULAR SUPPLEMENTAL SCALE SQ SCH ×3 (14:00→22:48)
--- NOTE | 2017-12-03 16:34 | HHI.CCPN ---
Subjective Remarks/Hospital Course 57-year-old female with known history of diabetes, hypertension, hyperlipidemia, history of atrial fibrillation who presented to hospital because acute onset of nausea vomiting. Patient states that she has been doing a fasting since last Saturday which is 6 days ago where it would appear that she is only taking in approximately 400 lizbeth daily. She is drinking one half of a protein shake daily, taking thrive powder supplement and multivitamin. Patient was doing well and states that she is lost approximately 11 pounds. However at approximately 2:00 this morning she woke up with severely violent nausea and vomiting. It was relentless until she came to the hospital. She is not been able tolerate any liquid or solid. Patient had workup done emergency department found to have diabetic ketoacidosis and is recommended patient be admitted the ICU for further management care. 12/03 No events overnight. Off insulin drip. AG closed ( 7 from 21 on arrival). Awake and laert on room air oxygen. Objective Vital Signs Date Time Temp Pulse Resp B/P (MAP) Pulse Ox O2 Delivery O2 Flow Rate FiO2 12/03/17 11:00 78 19 97/48 (64) 12/03/17 07:00 98.6 99 12/02/17 18:22 Room Air Intake and Output 12/03/17 12/03/17 12/04/17 08:00 16:00 00:00 Intake Total 3090 ml 850 ml Output Total 800 ml Balance 2290 ml 850 ml Result Diagram: 12/03/17 1215 12/03/17 1215 Other Results Laboratory Tests Test 12/02/17 19:45 12/02/17 20:35 12/03/17 02:50 12/03/17 07:59 Blood Gas Puncture Site RT RADIAL Blood Gas Patient Temperature 98.6 Blood Gas HCO3 10 mmol/L Blood Gas Base Excess -15.9 mmol/L Blood Gas Oxygen Saturation 96 % Arterial Blood pH 7.28 Arterial Blood Partial Pressure CO2 21 mmHG Arterial Blood Partial Pressure O2 104 mmHG Arterial Blood Oxygen Content 19.9 Vol % Arterial Blood Carboxyhemoglobin 0.2 % Arterial Blood Methemoglobin 0.8 % Blood Gas Hemoglobin 14.7 G/DL Oxygen Delivery Device ROOM AIR Blood Gas Inspired Oxygen 21 % Blood Urea Nitrogen 18 MG/DL 13 MG/DL 9 MG/DL Creatinine 1.00 MG/DL 0.87 MG/DL 0.75 MG/DL Random Glucose 149 MG/DL 173 MG/DL 142 MG/DL Calcium Level 7.7 MG/DL 7.6 MG/DL 7.3 MG/DL Phosphorus Level 1.3 MG/DL 0.6 MG/DL 1.1 MG/DL Magnesium Level 2.1 MG/DL 2.0 MG/DL 2.2 MG/DL Sodium Level 140 MEQ/L 140 MEQ/L 143 MEQ/L Potassium Level 4.4 MEQ/L 3.7 MEQ/L 3.5 MEQ/L Chloride Level 113 MEQ/L 114 MEQ/L 116 MEQ/L Carbon Dioxide Level 13.0 MEQ/L 16.6 MEQ/L 17.5 MEQ/L Anion Gap 14 MEQ/L 9 MEQ/L 10 MEQ/L Estimat Glomerular Filtration Rate 57 ML/MIN 67 ML/MIN 79 ML/MIN Nasal Screen MRSA (PCR) MRSA NOT DETECTED Total Protein 6.7 GM/DL 6.3 GM/DL Albumin 3.0 GM/DL Alkaline Phosphatase 73 U/L Aspartate Amino Transf (AST/SGOT) 14 U/L Alanine Aminotransferase (ALT/SGPT) 20 U/L Total Bilirubin 0.5 MG/DL B-Hydroxybutyrate 2.49 MMOL/L 0.35 MMOL/L White Blood Count 9.9 TH/MM3 Red Blood Count 4.60 MIL/MM3 Hemoglobin 12.9 GM/DL Hematocrit 40.0 % Mean Corpuscular Volume 86.9 FL Mean Corpuscular Hemoglobin 27.9 PG Mean Corpuscular Hemoglobin Concent 32.1 % Red Cell Distribution Width 13.1 % Platelet Count 206 TH/MM3 Mean Platelet Volume 10.5 FL Neutrophils (%) (Auto) 75.4 % Lymphocytes (%) (Auto) 14.1 % Monocytes (%) (Auto) 9.2 % Eosinophils (%) (Auto) 0.1 % Basophils (%) (Auto) 1.2 % Neutrophils # (Auto) 7.5 TH/MM3 Lymphocytes # (Auto) 1.4 TH/MM3 Monocytes # (Auto) 0.9 TH/MM3 Eosinophils # (Auto) 0.0 TH/MM3 Basophils # (Auto) 0.1 TH/MM3 CBC Comment DIFF FINAL Differential Comment Protein Corrected Calcium 7.7 MG/DL Test 12/03/17 11:32 12/03/17 12:15 12/03/17 16:20 Blood Gas Puncture Site LT RADIAL Blood Gas Patient Temperature 37.0 Blood Gas HCO3 15 mmol/L Blood Gas Base Excess -9.7 mmol/L Blood Gas Oxygen Saturation 95 % Arterial Blood pH 7.36 Arterial Blood Partial Pressure CO2 27 mmHg Arterial Blood Partial Pressure O2 87 mmHg Arterial Blood Oxygen Content 16.4 Vol % Arterial Blood Carboxyhemoglobin 0.5 % Arterial Blood Methemoglobin 1.0 % Blood Gas Hemoglobin 12.2 G/DL Oxygen Delivery Device ROOM AIR Blood Gas Inspired Oxygen 21 % White Blood Count 10.8 TH/MM3 Red Blood Count 4.54 MIL/MM3 Hemoglobin 12.9 GM/DL Hematocrit 38.5 % Mean Corpuscular Volume 84.7 FL Mean Corpuscular Hemoglobin 28.5 PG Mean Corpuscular Hemoglobin Concent 33.6 % Red Cell Distribution Width 12.4 % Platelet Count 189 TH/MM3 Mean Platelet Volume 9.2 FL Neutrophils (%) (Auto) 72.0 % Lymphocytes (%) (Auto) 20.5 % Monocytes (%) (Auto) 7.0 % Eosinophils (%) (Auto) 0.3 % Basophils (%) (Auto) 0.2 % Neutrophils # (Auto) 7.8 TH/MM3 Lymphocytes # (Auto) 2.2 TH/MM3 Monocytes # (Auto) 0.8 TH/MM3 Eosinophils # (Auto) 0.0 TH/MM3 Basophils # (Auto) 0.0 TH/MM3 CBC Comment DIFF FINAL Differential Comment Blood Urea Nitrogen 7 MG/DL Creatinine 0.69 MG/DL Random Glucose 154 MG/DL Calcium Level 7.6 MG/DL Sodium Level 140 MEQ/L Potassium Level 3.3 MEQ/L Chloride Level 116 MEQ/L Carbon Dioxide Level 16.6 MEQ/L Anion Gap 7 MEQ/L Estimat Glomerular Filtration Rate 87 ML/MIN B-Hydroxybutyrate 0.35 MMOL/L Imaging Last Impressions Chest X-Ray 12/02/17 0000 Signed Impressions: Service Date/Time: Saturday, December 02, 2017 14:44 - CONCLUSION: No acute disease. Timo Adamson MD FACR Objective Remarks GENERAL: Well-developed, well-nourished, in no acute distress. alert and orientated HEENT: Head is normocephalic without any lesions or masses noted. Facial features are symmetric. Eyes: Pupils equal round reactive to light. Extraocular muscles are intact. Conjunctivae were clear. Oropharyngeal: Pharynx without any erythema edema. Tongue is midline without deviation. Buccal mucosa is moist without any masses or lesions NECK: Supple without any masses. Trachea midline no deviation. No JVD, no bruits are appreciated CARDIAC: Regular rhythm, regular rate. S1/S2 are heard. No murmurs gallops or rubs. LUNGS: Clear to auscultation bilaterally. No wheeze, rhonchi or rales. No use of accessory muscles on inspiration or expiration. ABDOMEN: Soft, nontender. Nondistended. Bowel sounds heard in all 4 quadrants. No organomegaly or masses. Negative rebound, negative guarding EXTREMITIES: No edema, pulses are equal bilaterally. No cyanosis or clubbing NEUROLOGY: Mood and affect appear appropriate. Cranial nerves II through XII grossly intact. Muscle strength 5/5 in upper and lower extremities bilaterally. Deep tendon reflexes are 2+ in upper and lower extremities bilaterally. A/P Problem List: (1) Systemic inflammatory response syndrome ICD Code: R65.10 - Systemic inflammatory response syndrome (SIRS) of non- infectious origin without acute organ dysfunction (2) DKA (diabetic ketoacidosis) ICD Code: E13.10 - Other specified diabetes mellitus with ketoacidosis without coma Status: Acute (3) Metabolic acidosis ICD Code: E87.2 - Acidosis (4) Acute renal failure ICD Code: N17.9 - Acute kidney failure, unspecified (5) Dehydration ICD Code: E86.0 - Dehydration (6) Leukocytosis ICD Code: D72.829 - Elevated white blood cell count, unspecified (7) Urinary tract infection ICD Code: N39.0 - Urinary tract infection, site not specified Assessment and Plan NEUROLOGY Awake and alert PULMONOLOGY Oxygen PRN maintain O2 sats > 92% Incentive spirometry CARDIOLOGY History of hypertension History of hyperlipidemia Monitor HR and BP keep MAP> 65mmHg Lactic acid 2.0 GASTROENTEROLOGY On PO diabetic diet Pepcid for GI protection RENAL Acute renal failure- resolved Metabolic acidosis- resolved Status post 2 amps sodium bicarbonate Monitor renal function, electrolytes replacement per protocol. On NS@75ml/hr INFECTIOUS DISEASE Leukocytosis- resolved- Urinary tract infection on Rocephin empirically for UTI. Monitor for signs of infections ( Fever, WBC) ENDOCRINOLOGY Diabetic ketoacidosis- resolved Off insulin drip, continue with SSI and Levemir 5u BID HEMATOLOGY Monitor CBC PROPHYLAXIS GI protection with Pepcid DVT prevention with subcutaneous heparin LINES Peripheral IVs Level 3 Problem Qualifiers (1) DKA (diabetic ketoacidosis): Qualified Codes: E11.10 - Type 2 diabetes mellitus with ketoacidosis without coma Mireya Graves MD Dec 03, 2017 16:34
[2017-12-03 16:45] LABS: PHOSPHORUS 0.9 MG/DL (2.5-4.9)
[2017-12-03 17:03] LABS: BICARBONATE 14.7 MEQ/L (21.0-32.0); CALCIUM 7.9 MG/DL (8.5-10.1); CREATININE 0.68 MG/DL (0.50-1.00)
[2017-12-03] MEDS: cefTRIAXone INJ 1,000 MG in SODIUM CHLORIDE 0.9% INJ 100 ML IV SCH (18:10)
[2017-12-04] VITALS (42 sets, daily range): BP systolic 78–143; BP diastolic 47–82; PULSE 64–196; RESP 11–30; TEMP 97.7–99.1; O2SAT 96–100
[2017-12-04] MEDS: INSULIN NovoLIN REGULAR SUPPLEMENTAL SCALE SQ SCH ×5 (02:00→20:06)
[2017-12-04] MEDS: CHLORHEXIDINE GLUCONATE 2 % 1 PACK (2 CLOTHS) TOP SCH (04:00)
[2017-12-04 04:57] LABS: AUTOMATED NEUTROPHIL # 3.8 TH/MM3 (1.8-7.7); BASOPHIL % 0.6 % (0.0-2.0); EOSINOPHIL # 0.1 TH/MM3 (0-0.4); EOSINOPHIL % 0.8 % (0.0-4.0); HEMATOCRIT 38.5 % (35.0-46.0); HEMOGLOBIN 12.6 GM/DL (11.6-15.3); LYMPH % 32.7 % (9.0-44.0); LYMPHOCYTE # 2.1 TH/MM3 (1.0-4.8); MEAN CELL VOLUME 85.7 FL (80.0-100.0); MEAN CORPUSCULAR HEMOGLOBIN 28.2 PG (27.0-34.0); MEAN CORPUSCULAR HGB CONC 32.9 % (32.0-36.0); MEAN PLATELET VOLUME 9.6 FL (7.0-11.0); MONO % 6.8 % (0.0-8.0); MONOCYTE # 0.4 TH/MM3 (0-0.9); NEUT % 59.1 % (16.0-70.0); PLATELET COUNT 160 TH/MM3 (150-450); RED BLOOD COUNT 4.49 MIL/MM3 (4.00-5.30); WHITE BLOOD COUNT 6.4 TH/MM3 (4.0-11.0)
[2017-12-04 05:08] LABS: CALCIUM 7.7 MG/DL (8.5-10.1)
[2017-12-04 05:09] LABS: BICARBONATE 21.9 MEQ/L (21.0-32.0); MAGNESIUM 2.2 MG/DL (1.5-2.5)
[2017-12-04 05:12] LABS: CREATININE 0.5 MG/DL (0.50-1.00)
[2017-12-04] MEDS ORDERED: POTASSIUM PHOSPHATE INJ 30 MMOL in SODIUM CHLOR 0.9% 250 ML INJ 250 ML IV ONE (06:30)
[2017-12-04] MEDS ORDERED: SODIUM PHOSPHATE INJ 30 MMOL in SODIUM CHLOR 0.9% 250 ML INJ 250 ML IV ONE (06:30)
[2017-12-04] MEDS ORDERED: ONDANSETRON HCL 4 MG/2 ML VIAL IV PUSH ONE (06:30)
[2017-12-04] MEDS ORDERED: POTASSIUM CHLORIDE 20 MEQ CONTROLLED RELEASE TAB PO ONE ×3 (06:30→18:00)
[2017-12-04] MEDS ORDERED: DILTIAZEM HCL 25 MG/5 ML VIAL IV ONE (06:45)
[2017-12-04] MEDS: HEPARIN SODIUM - SQ 10,000 UNITS/ML VIAL SQ SCH (06:49)
[2017-12-04] MEDS: POTASSIUM CHLOR 10 MEQ PREMIX 100 ML IV SCH ×3 (06:52→08:30)
[2017-12-04] MEDS ORDERED: DIGOXIN 0.5 MG/2 ML VIAL IV PUSH ONE ×2 (07:45→13:45)
[2017-12-04] MEDS ORDERED: HEPARIN-D5W 25,000 U/250 ML 250 ML IV PRN (08:00)
[2017-12-04] MEDS ORDERED: AMIODARONE INJ 150 MG in DEXTROSE 5% IN WATER 100ML INJ 100 ML IV ONE ×2 (08:03)
[2017-12-04] MEDS ORDERED: AMIODARONE INJ 450 MG in DEXTROSE 5% IN WATE(EXCEL) INJ 241 ML IV PRN ×2 (08:13)
[2017-12-04] MEDS ORDERED: RESP: ALBUTEROL 2.5 MG/3 ML NEB (PRN) NEB (08:15)
--- NOTE | 2017-12-04 08:16 | HHI.CCPN ---
Subjective Remarks/Hospital Course 57-year-old female with known history of diabetes, hypertension, hyperlipidemia, history of atrial fibrillation who presented to hospital because acute onset of nausea vomiting. Patient states that she has been doing a fasting since last Saturday which is 6 days ago where it would appear that she is only taking in approximately 400 lizbeth daily. She is drinking one half of a protein shake daily, taking thrive powder supplement and multivitamin. Patient was doing well and states that she is lost approximately 11 pounds. However at approximately 2:00 this morning she woke up with severely violent nausea and vomiting. It was relentless until she came to the hospital. She is not been able tolerate any liquid or solid. Patient had workup done emergency department found to have diabetic ketoacidosis and is recommended patient be admitted the ICU for further management care. 12/03 No events overnight. Off insulin drip. AG closed ( 7 from on arrival). Awake and laert on room air oxygen. Subjective 12/04: At 6 AM, patient went A. fib with RVR. Potassium was 3.3. Magnesium 2.2. Receiving 60 mEq potassium by mouth 1 now due to "burning" with IV potassium. 30 mmol potassium phosphorus given afterwards along with sodium phosphorus. Received 20 mg diltiazem, 2.5 mg Lopressor and 0.5 mill grams digoxin. Still in A. fib with RVR. Currently with multiple somatic complaints including complaining of headache and "burning" with IV fluids. Echocardiogram EF 60% 01/25. Troponin is pending. TSH normal 01/25. Amiodarone drip to be initiated. Hemodynamically stable currently Objective Vital Signs Date Time Temp Pulse Resp B/P (MAP) Pulse Ox O2 Delivery O2 Flow Rate FiO2 12/04/17 07:00 156 21 99/82 (88) 96 12/04/17 03:06 98.8 12/02/17 18:22 Room Air Intake and Output 12/04/17 12/04/17 12/05/17 08:00 16:00 00:00 Intake Total 720 ml Output Total 1500 ml Balance -780 ml Result Diagram: 12/04/17 0445 12/04/17 0445 Other Results Microbiology Date/Time Source Procedure Growth Status 12/02/17 15:40 Urine Clean Catch Urine Culture - Preliminary IMMATURE GROWTH - REINCUBATE Resulted Imaging Last Impressions Chest X-Ray 12/02/17 0000 Signed Impressions: Service Date/Time: Saturday, December 02, 2017 14:44 - CONCLUSION: No acute disease. Timo Adamson MD FACR Objective Remarks GENERAL: 57-year-old male resting in bed in no acute distress HEENT: Normocephalic, atraumatic. Pupils equally round and react. Mucous members are moist and pink. Oropharynx without erythema or exudates NECK: Supple without any masses. Trachea midline no deviation. No JVD, no bruits are appreciated CARDIAC: Tachycardic, IR. S1, S2. No S4. Without murmur LUNGS: Clear to auscultation bilaterally. No wheeze, rhonchi or rales. No use of accessory muscles on inspiration or expiration. ABDOMEN: Soft, nontender. Nondistended. Bowel sounds heard in all 4 quadrants. No organomegaly or masses. Negative rebound, negative guarding EXTREMITIES: No significant peripheral edema. NEUROLOGY. Cranial nerves II through XII grossly intact. Strength appears to be equal symmetric bilaterally. Normal sensation. A/P Assessment and Plan NEUROLOGY/PSYCH Depression Awake and alert Acetaminophen 650 mg by mouth every 6 hours when necessary fever Hydrocodone/acetaminophen 5/325 1-2 tablets every 4 hours when necessary pain 1- 10 Continue duloxetine 60 mg by mouth daily for depression PULMONOLOGY Oxygen PRN maintain O2 sats > 92% Incentive spirometry every hour while awake CARDIOLOGY Atrial fibrillation with rapid ventricular response History of hypertension History of hyperlipidemia Status post 20 mill grams diltiazem, 2.5 mg Lopressor and 0.5 mg digoxin IV 1. Repeat troponin 25 mg at 1345 Initiate amiodarone drip only if needed TSH and troponin pending EKG revealed A. fib with RVR with non specific ST-T changes Tachycardic and 01/18 revealed EF 60%. No regional wall motion abnormality. Repeat cardiology consult - Dr. Ervin 2016 an echocardiogram Monitor HR and BP keep MAP> 65mmHg Lactic acid 2.0 Currently not on any anti-hypertensives or lipid-lowering agents. GASTROENTEROLOGY Hypoalbuminemia On PO diabetic diet Famotidine for GI prophylaxis Docusate sodium/senna 1 tablet twice a day for bowel regimen RENAL Acute renal failure- resolved Metabolic acidosis- resolved Discontinue all IV fluids Creatinine currently within normal limits INFECTIOUS DISEASE Leukocytosis- resolved- Urinary tract infection Chart initially on ceftriaxone empirically for UTI. Monitor for signs of infections ( Fever, WBC) Immature growth on UA. Reintubated ENDOCRINOLOGY Diabetic ketoacidosis- resolved Off insulin drip, continue with SSI and insulin detemir 5u BID At home on metformin 1000 m daily and the dapagliflozin/metformin 08/1000 one tablet daily HEMATOLOGY Monitor CBC FEN: Hypokalemia Hypophosphatemia Receive 30 mmol sodium phosphorus and 15 mmol potassium phosphate IV 1 now. Recheck at 1500 Received 60 mEq potassium chloride by mouth 1 now. Recheck at 1500 PROPHYLAXIS GI protection with famotidine DVT prevention with subcutaneous heparin LINES Peripheral IVs Level 3 follow-up Salvatore Akers MD Dec 04, 2017 08:16
[2017-12-04] MEDS ORDERED: POTASSIUM CHLOR 40 MEQ PREMIX 100 ML IV PRN ×2 (08:30)
[2017-12-04] MEDS ORDERED: ACETAMINOPHEN 325 MG TAB PO PRN (08:30)
[2017-12-04] MEDS ORDERED: MAGNESIUM SULFATE INJ 4 GM in SODIUM CHLORIDE 0.9% INJ 92 ML IV PRN (08:30)
[2017-12-04] MEDS ORDERED: ACETAMINOPHEN/HYDROcodone 325 MG/5 MG TAB PO PRN ×2 (08:30)
[2017-12-04] MEDS ORDERED: POTASSIUM CHLOR 20 MEQ PREMIX 100 ML IV PRN ×2 (08:30)
[2017-12-04] MEDS ORDERED: POTASSIUM PHOSPHATE MONOBASIC 500 MG TAB PO PRN (08:30)
[2017-12-04] MEDS ORDERED: MAGNESIUM SULFATE INJ 2 GM in SODIUM CHLORIDE 0.9% INJ 96 ML IV PRN (08:30)
[2017-12-04] MEDS ORDERED: POTASSIUM PHOSPHATE MONOBASIC 500 MG TAB PO/TUBE PRN (08:30)
[2017-12-04] MEDS ORDERED: POTASSIUM PHOSPHATE INJ 30 MMOL in SODIUM CHLOR 0.9% 250 ML INJ 250 ML IV PRN (08:30)
[2017-12-04] MEDS ORDERED: MAGNESIUM OXIDE 400 MG TAB PO PRN (08:30)
[2017-12-04] MEDS ORDERED: POTASSIUM CHLORIDE 25 MEQ EFFERVESCENT TAB PO PRN (08:30)
[2017-12-04] MEDS ORDERED: SODIUM PHOSPHATE INJ 30 MMOL in SODIUM CHLOR 0.9% 250 ML INJ 240 ML IV PRN (08:30)
[2017-12-04] MEDS ORDERED: CALCIUM GLUCONATE INJ 1 GM in SODIUM CHLORIDE 0.9% INJ 100 ML IV ONE (09:00)
[2017-12-04] MEDS: METOPROLOL TARTRATE 5 MG/5 ML VIAL IV PUSH SCH ×3 (09:02→20:51)
[2017-12-04] MEDS: INSULIN DETEMIR 100 UNITS/ML VIAL SQ SCH ×2 (09:04→20:00)
[2017-12-04] MEDS: DOCUSATE SODIUM 50 MG/SENNA 8.6 MG TAB PO SCH ×2 (09:07→20:05)
[2017-12-04] MEDS: FAMOTIDINE 20 MG TAB PO SCH ×2 (09:07→20:05)
[2017-12-04] MEDS ORDERED: POTASSIUM PHOSPHATE/SODIUM PHOSPHATE 250 MG TAB PO ONE (09:45)
[2017-12-04 10:13] LABS: HEMATOCRIT 42.6 % (35.0-46.0); HEMOGLOBIN 13.9 GM/DL (11.6-15.3); MEAN CELL VOLUME 86.6 FL (80.0-100.0); MEAN CORPUSCULAR HEMOGLOBIN 28.3 PG (27.0-34.0); MEAN CORPUSCULAR HGB CONC 32.6 % (32.0-36.0); MEAN PLATELET VOLUME 10.1 FL (7.0-11.0); PLATELET COUNT 183 TH/MM3 (150-450); RED BLOOD COUNT 4.92 MIL/MM3 (4.00-5.30); WHITE BLOOD COUNT 6.3 TH/MM3 (4.0-11.0)
[2017-12-04 10:58] LABS: TROPONIN I LESS THAN 0.02 NG/ML (0.02-0.05)
--- NOTE | 2017-12-04 11:55 | EKG ---
Date Performed: 12/04/2017 Time Performed: 08:44:36 PTAGE: 57 years EKG: SINUS TACHYCARDIA ABNORMAL RHYTHM ECG PREVIOUS TRACING : 12/04/2017 06.37 Compared to prior tracing, a fib no longer present DOCTOR: Silvia Ervin Interpretating Date/Time 12/04/2017 11:53:32
--- NOTE | 2017-12-04 11:58 | EKG ---
Date Performed: 12/04/2017 Time Performed: 06:37:22 PTAGE: 57 years EKG: ATRIAL FIBRILLATION WITH RAPID VENTRICULAR RESPONSE NONSPECIFIC ST & T-WAVE ABNORMALITY ABN ORMAL ECG PREVIOUS TRACING : 01/31/2017 00.46 Compared to prior tracing, SR no longer present DOCTOR: Silvia Ervin Interpretating Date/Time 12/04/2017 11:56:31
[2017-12-04] MEDS: DULoxetine HCl DR 60 MG CAP PO SCH (14:22)
[2017-12-04 15:24] LABS: CHLORIDE 110 MEQ/L (98-107); SODIUM (NA) 141 MEQ/L (136-145)
[2017-12-04 15:26] LABS: CALCIUM 8.2 MG/DL (8.5-10.1)
[2017-12-04 15:27] LABS: BICARBONATE 23.2 MEQ/L (21.0-32.0); BLOOD UREA NITROGEN 5 MG/DL (7-18); GLUCOSE,RANDOM 168 MG/DL (74-106); MAGNESIUM 2.4 MG/DL (1.5-2.5)
[2017-12-04 15:30] LABS: CREATININE 0.58 MG/DL (0.50-1.00); GLOMERULAR FILTRATION RATE 106 ML/MIN (>89)
[2017-12-04 16:07] LABS: PHOSPHORUS 3.6 MG/DL (2.5-4.9); TROPONIN I LESS THAN 0.02 NG/ML (0.02-0.05)
[2017-12-04] MEDS: cefTRIAXone INJ 1,000 MG in SODIUM CHLORIDE 0.9% INJ 100 ML IV SCH (17:30)
--- NOTE | 2017-12-04 17:48 | ECHRPT ---
Indication: ATRIAL FIB/FLUTTER CONCLUSIONS Normal left ventricular size. Mild concentric left ventricular hypertrophy. The left ventricular systolic function is hyperdynamic with an estimated ejection fraction in the ra nge of 65- 70%. The left atrial size is mildly dilated. The right atrial size is mildly dilated. Aortic valve sclerosis is present. BP: 111 / 68 HR: 76 Rhythm: Sinus MEASUREMENTS (Male / Female) Normal Values Technical Quality:Fair 2D ECHO LV Diastolic Diameter PLAX 3.8 cm 4.2 - 5.9 / 3.9 - 5.3 cm LV Systolic Diameter PLAX 2.6 cm IVS Diastolic Thickness 1.1 cm 0.6 - 1.0 / 0.6 - 0.9 cm LVPW Diastolic Thickness 1.1 cm 0.6 - 1.0 / 0.6 - 0.9 cm LV Relative Wall Thickness 0.6 RV Internal Dim ED PLAX 2.5 cm LVOT Diameter 1.6 cm Aortic Root Diameter 2.6 cm LA Systolic Diameter LX 3.2 cm 3.0 - 4.0 / 2.7 - 3.8 cm M-MODE AV Cusp Separation MM 1.2 cm DOPPLER AV Peak Velocity 142.0 cm/s AV Peak Gradient 8.1 mmHg AV Mean Gradient 4.0 mmHg AV Velocity Time Integral 23.4 cm LVOT Peak Velocity 105.0 cm/s LVOT Peak Gradient 4.4 mmHg LVOT Velocity Time Integral 20.3 cm AV Area Cont Eq vti 1.7 cm AV Area Cont Eq pk 1.5 cm Mitral E Point Velocity 111.0 cm/s Mitral A Point Velocity 90.3 cm/s Mitral E to A Ratio 1.2 LV E' Lateral Velocity 13.0 cm/s Mitral E to LV E' Lateral Ratio 8.5 LV E' Septal Velocity 7.5 cm/s Mitral E to LV E' Septal Ratio 14.8 PV Peak Velocity 51.9 cm/s PV Peak Gradient 1.1 mmHg FINDINGS LEFT VENTRICLE Normal left ventricular size. Mild concentric left ventricular hypertrophy. The left ventricular systolic function is hyperdynamic with an estimated ejection fraction in the ra nge of 65- 70%. RIGHT VENTRICLE Normal right ventricular size and systolic function. LEFT ATRIUM The left atrial size is mildly dilated. RIGHT ATRIUM The right atrial size is mildly dilated. ATRIAL SEPTUM No atrial level shunt is demonstrated by color flow Doppler interrogation. AORTA The aortic root and proximal ascending aorta are normal in size on limited imaging. MITRAL VALVE Structurally normal mitral valve. No mitral valve stenosis or regurgitation. AORTIC VALVE Aortic valve sclerosis is present. TRICUSPID VALVE Structurally normal tricuspid valve. No tricuspid valve stenosis or regurgitation. PULMONARY VALVE No pulmonary valve regurgitation or stenosis. VESSELS The inferior vena cava is normal in size. PERICARDIUM No pericardial effusion. Silvia Ervin MD, FACC (Electronically Signed) Final Date:04 December 2017 17:47
[2017-12-05] VITALS (23 sets, daily range): BP systolic 99–129; BP diastolic 49–68; PULSE 58–90; RESP 10–36; TEMP 97.9–98.5; O2SAT 96–98
[2017-12-05] MEDS: METOPROLOL TARTRATE 5 MG/5 ML VIAL IV PUSH SCH ×4 (02:09→20:00)
[2017-12-05] MEDS: CHLORHEXIDINE GLUCONATE 2 % 1 PACK (2 CLOTHS) TOP SCH (04:00)
[2017-12-05 05:30] LABS: AUTOMATED NEUTROPHIL # 3.2 TH/MM3 (1.8-7.7); BASOPHIL % 0.7 % (0.0-2.0); EOSINOPHIL # 0.1 TH/MM3 (0-0.4); EOSINOPHIL % 2.5 % (0.0-4.0); HEMATOCRIT 37.1 % (35.0-46.0); HEMOGLOBIN 12.5 GM/DL (11.6-15.3); LYMPH % 37.1 % (9.0-44.0); LYMPHOCYTE # 2.1 TH/MM3 (1.0-4.8); MEAN CELL VOLUME 85.5 FL (80.0-100.0); MEAN CORPUSCULAR HEMOGLOBIN 28.9 PG (27.0-34.0); MEAN CORPUSCULAR HGB CONC 33.8 % (32.0-36.0); MEAN PLATELET VOLUME 9.2 FL (7.0-11.0); MONO % 7.2 % (0.0-8.0); MONOCYTE # 0.4 TH/MM3 (0-0.9); NEUT % 52.5 % (16.0-70.0); PLATELET COUNT 148 TH/MM3 (150-450); RED BLOOD COUNT 4.34 MIL/MM3 (4.00-5.30); RED CELL DISTRIBUTION WIDTH 12.4 % (11.6-17.2); WHITE BLOOD COUNT 5.8 TH/MM3 (4.0-11.0)
[2017-12-05 05:35] LABS: CHLORIDE 110 MEQ/L (98-107); SODIUM (NA) 143 MEQ/L (136-145)
[2017-12-05 05:38] LABS: ALBUMIN 2.5 GM/DL (3.4-5.0); CALCIUM 7.7 MG/DL (8.5-10.1); GLUCOSE,RANDOM 117 MG/DL (74-106); MAGNESIUM 2.3 MG/DL (1.5-2.5)
[2017-12-05 05:39] LABS: BLOOD UREA NITROGEN 7 MG/DL (7-18)
[2017-12-05 05:56] LABS: AST (GOT) 17 U/L (15-37)
[2017-12-05 05:57] LABS: TOTAL BILIRUBIN ADULT 0.6 MG/DL (0.2-1.0); TOTAL PROTEIN 5.7 GM/DL (6.4-8.2)
[2017-12-05 05:58] LABS: ALKALINE PHOSPHATASE 64 U/L (45-117)
[2017-12-05 06:01] LABS: ALT (GPT) 21 U/L (10-53); CREATININE 0.48 MG/DL (0.50-1.00); GLOMERULAR FILTRATION RATE 132 ML/MIN (>89)
[2017-12-05 06:32] LABS: DIGOXIN 0.9 NG/ML (0.8-2.0)
[2017-12-05] MEDS ORDERED: POTASSIUM CHLORIDE 20 MEQ CONTROLLED RELEASE TAB PO ONE (07:45)
--- NOTE | 2017-12-05 07:46 | HHI.CCPN ---
Subjective Remarks/Hospital Course 57-year-old female with known history of diabetes, hypertension, hyperlipidemia, history of atrial fibrillation who presented to hospital because acute onset of nausea vomiting. Patient states that she has been doing a fasting since last Saturday which is 6 days ago where it would appear that she is only taking in approximately 400 lizbeth daily. She is drinking one half of a protein shake daily, taking thrive powder supplement and multivitamin. Patient was doing well and states that she is lost approximately 11 pounds. However at approximately 2:00 this morning she woke up with severely violent nausea and vomiting. It was relentless until she came to the hospital. She is not been able tolerate any liquid or solid. Patient had workup done emergency department found to have diabetic ketoacidosis and is recommended patient be admitted the ICU for further management care. 12/03 No events overnight. Off insulin drip. AG closed ( 7 from on arrival). Awake and laert on room air oxygen. 12/04: At 6 AM, patient went A. fib with RVR. Potassium was 3.3. Magnesium 2.2. Receiving 60 mEq potassium by mouth 1 now due to "burning" with IV potassium. 30 mmol potassium phosphorus given afterwards along with sodium phosphorus. Received 20 mg diltiazem, 2.5 mg Lopressor and 0.5 mill grams digoxin. Still in A. fib with RVR. Currently with multiple somatic complaints including complaining of headache and "burning" with IV fluids. Echocardiogram EF 60% 01/25. Troponin is pending. TSH normal 01/25. Amiodarone drip to be initiated. Hemodynamically stable currently Subjective 12/05: Electrolytes are been repleted. Converted normal sinus rhythm late yesterday morning. Afebrile. Awaiting diabetic education today. Objective Vital Signs Date Time Temp Pulse Resp B/P (MAP) Pulse Ox O2 Delivery O2 Flow Rate FiO2 12/05/17 06:00 69 12/05/17 04:07 98 21 12/05/17 03:00 11 99/52 (68) 12/05/17 00:00 97.9 12/02/17 18:22 Room Air Intake and Output 12/05/17 12/05/17 12/06/17 08:00 16:00 00:00 Intake Total 340 ml Output Total 1300 ml Balance -960 ml Result Diagram: 12/05/17 0510 12/05/17 0510 Other Results Microbiology Date/Time Source Procedure Growth Status 12/02/17 15:40 Urine Clean Catch Urine Culture - Final 50-100,000 CFU/ML MIXED GRAM POSITIVE... Complete Imaging Last Impressions Chest X-Ray 12/02/17 0000 Signed Impressions: Service Date/Time: Saturday, December 02, 2017 14:44 - CONCLUSION: No acute disease. Timo Adamson MD FACR Objective Remarks GENERAL: 57-year-old male resting in bed in no acute distress HEENT: Normocephalic, atraumatic. Pupils equally round and react. Mucous members are moist and pink. Oropharynx without erythema or exudates NECK: Supple without any masses. Trachea midline no deviation. No JVD, no bruits are appreciated CARDIAC: RRR S1, S2. No S4. Without murmur LUNGS: Clear to auscultation bilaterally. No wheeze, rhonchi or rales. No use of accessory muscles on inspiration or expiration. ABDOMEN: Soft, nontender. Nondistended. Bowel sounds heard in all 4 quadrants. No organomegaly or masses. Negative rebound, negative guarding EXTREMITIES: No significant peripheral edema. NEUROLOGY. Cranial nerves II through XII grossly intact. Strength appears to be equal symmetric bilaterally. Normal sensation. Urinary Catheter: Yes Assessment to: Continue Tse insert reason: Prolonged Immobilization Vascular Central Line Catheter: No Assessment to: Continue A/P Assessment and Plan NEUROLOGY/PSYCH Depression Awake and alert Acetaminophen 650 mg by mouth every 6 hours when necessary fever Hydrocodone/acetaminophen 5/325 1-2 tablets every 4 hours when necessary pain 1- 10 Continue duloxetine 60 mg by mouth daily for depression PULMONOLOGY Oxygen PRN maintain O2 sats > 92% Incentive spirometry every hour while awake CARDIOLOGY Atrial fibrillation with rapid ventricular response History of hypertension History of hyperlipidemia Status post 20 mill grams diltiazem, 2.5 mg Lopressor and 0.5 mg digoxin IV 1. Digoxin level at 0. 25 mg at 1345 completed 40 negative. TSH within normal limits EKG revealed A. fib with RVR with non specific ST-T changes Tachycardic and 3/10 revealed EF 60%. No regional wall motion abnormality. Discussed with cardiology - Dr. Ervin. Currently normal sinus rhythm. Canceled consult for now. Okay to follow-up as outpatient Monitor HR and BP keep MAP> 65mmHg Echo - Normal left ventricular size. Mild concentric left ventricular hypertrophy. The left ventricular systolic function is hyperdynamic with an estimated ejection fraction in the range of 65-70%. The left atrial size is mildly dilated. The right atrial size is mildly dilated. Aortic valve sclerosis is present Lactic acid 2.0 Currently not on any anti-hypertensives or lipid-lowering agents. We'll start on low-dose Cardizem 30 mg every 6 hours if indicated GASTROENTEROLOGY Hypoalbuminemia On PO diabetic diet Famotidine for GI prophylaxis Docusate sodium/senna 1 tablet twice a day for bowel regimen RENAL Acute renal failure- resolved Metabolic acidosis- resolved Discontinue all IV fluids Creatinine currently within normal limits INFECTIOUS DISEASE Leukocytosis- resolved- Urinary tract infection Placed initially on ceftriaxone empirically for UTI. Monitor for signs of infections ( Fever, WBC) Immature growth 50- 100,000 gram-positive on UA. Reintubated ENDOCRINOLOGY Diabetic ketoacidosis- resolved Off insulin drip, continue with SSI and insulin detemir 5u BID At home on metformin 1000 m daily and the dapagliflozin/metformin 08/1000 one tablet daily HEMATOLOGY Monitor CBC FEN: Hypokalemia Hypophosphatemia Resolved. Will receive additional potassium this AM. PROPHYLAXIS GI protection with famotidine DVT prevention with subcutaneous heparin LINES Peripheral IVs Level II follow-up Patient is stable from a critical care medicine standpoint. Okay to transfer from ICU. Hospitalist to assume care in a.m. 12/06 Salvatore Akers MD Dec 05, 2017 07:46
[2017-12-05] MEDS ORDERED: POTASSIUM PHOSPHATE/SODIUM PHOSPHATE 250 MG TAB PO ONE (08:00)
[2017-12-05] MEDS: INSULIN NovoLIN REGULAR SUPPLEMENTAL SCALE SQ SCH ×4 (08:00→20:39)
[2017-12-05] MEDS: DOCUSATE SODIUM 50 MG/SENNA 8.6 MG TAB PO SCH ×2 (11:27→20:30)
[2017-12-05] MEDS: INSULIN DETEMIR 100 UNITS/ML VIAL SQ SCH ×2 (11:27→20:39)
[2017-12-05] MEDS: DULoxetine HCl DR 60 MG CAP PO SCH (11:27)
[2017-12-05] MEDS: FAMOTIDINE 20 MG TAB PO SCH ×2 (11:27→20:30)
[2017-12-05] MEDS: cefTRIAXone INJ 1,000 MG in SODIUM CHLORIDE 0.9% INJ 100 ML IV SCH (16:51)
[2017-12-06] VITALS: BP 128/67; PULSE 72; RESP 12; TEMP 97.5; O2SAT 95
[2017-12-06] MEDS: METOPROLOL TARTRATE 5 MG/5 ML VIAL IV PUSH SCH (00:53)
[2017-12-06 02:00] VITALS: PULSE 70
[2017-12-06 04:00] VITALS: PULSE 68
[2017-12-06] MEDS: CHLORHEXIDINE GLUCONATE 2 % 1 PACK (2 CLOTHS) TOP SCH (04:00)
[2017-12-06 04:01] VITALS: BP 106/52; PULSE 68; RESP 10; TEMP 98.6; O2SAT 96
[2017-12-06 04:51] LABS: AUTOMATED NEUTROPHIL # 3.3 TH/MM3 (1.8-7.7); BASOPHIL % 0.8 % (0.0-2.0); EOSINOPHIL # 0.2 TH/MM3 (0-0.4); EOSINOPHIL % 3.2 % (0.0-4.0); HEMATOCRIT 38.8 % (35.0-46.0); HEMOGLOBIN 13.4 GM/DL (11.6-15.3); LYMPHOCYTE # 1.9 TH/MM3 (1.0-4.8); MEAN CELL VOLUME 84.9 FL (80.0-100.0); MEAN CORPUSCULAR HEMOGLOBIN 29.3 PG (27.0-34.0); MEAN CORPUSCULAR HGB CONC 34.6 % (32.0-36.0); MEAN PLATELET VOLUME 9.8 FL (7.0-11.0); MONO % 7.7 % (0.0-8.0); MONOCYTE # 0.5 TH/MM3 (0-0.9); NEUT % 56.3 % (16.0-70.0); PLATELET COUNT 163 TH/MM3 (150-450); RED BLOOD COUNT 4.57 MIL/MM3 (4.00-5.30); RED CELL DISTRIBUTION WIDTH 12.6 % (11.6-17.2); WHITE BLOOD COUNT 5.9 TH/MM3 (4.0-11.0)
[2017-12-06 05:01] LABS: CHLORIDE 104 MEQ/L (98-107); SODIUM (NA) 140 MEQ/L (136-145)
[2017-12-06 05:08] LABS: CALCIUM 8.3 MG/DL (8.5-10.1)
[2017-12-06 05:09] LABS: ALBUMIN 2.7 GM/DL (3.4-5.0); BICARBONATE 30.3 MEQ/L (21.0-32.0); BLOOD UREA NITROGEN 10 MG/DL (7-18); GLUCOSE,RANDOM 152 MG/DL (74-106); MAGNESIUM 2.4 MG/DL (1.5-2.5)
[2017-12-06 05:12] LABS: ALT (GPT) 23 U/L (10-53); AST (GOT) 16 U/L (15-37); CREATININE 0.57 MG/DL (0.50-1.00); GLOMERULAR FILTRATION RATE 109 ML/MIN (>89); PHOSPHORUS 3.8 MG/DL (2.5-4.9)
[2017-12-06 05:13] LABS: TOTAL BILIRUBIN ADULT 0.7 MG/DL (0.2-1.0); TOTAL PROTEIN 6.5 GM/DL (6.4-8.2)
[2017-12-06 05:15] LABS: ALKALINE PHOSPHATASE 76 U/L (45-117)
[2017-12-06 06:00] VITALS: PULSE 66
[2017-12-06 08:00] VITALS: BP 134/72; PULSE 74; PULSE 90; RESP 23; TEMP 98.2; O2SAT 97
[2017-12-06] MEDS ORDERED: BLOOD GLUCOSE M1 KIT (11:13)
[2017-12-06] MEDS ORDERED: BLOOD GLUCOSE T1 TES (11:13)
--- NOTE | 2017-12-06 11:18 | HHI.DS ---
Discharge Summary Admission Date Dec 02, 2017 at 16:59 Discharge Date: Dec 06, 2017 Admitting Diagnosis DKA (1) Systemic inflammatory response syndrome ICD Code: R65.10 - Systemic inflammatory response syndrome (SIRS) of non- infectious origin without acute organ dysfunction (2) DKA (diabetic ketoacidosis) ICD Code: E13.10 - Other specified diabetes mellitus with ketoacidosis without coma Diagnosis: Principal Status: Acute (3) Leukocytosis ICD Code: D72.829 - Elevated white blood cell count, unspecified Diagnosis: Principal (4) Dehydration ICD Code: E86.0 - Dehydration Diagnosis: Principal (5) Metabolic acidosis ICD Code: E87.2 - Acidosis Diagnosis: Principal (6) Acute renal failure ICD Code: N17.9 - Acute kidney failure, unspecified Diagnosis: Principal Procedures none Brief History - From Admission 57-year-old female with known history of diabetes, hypertension, hyperlipidemia, history of atrial fibrillation who presented to hospital because acute onset of nausea vomiting. Patient states that she has been doing a fasting since last Saturday which is 6 days ago where it would appear that she is only taking in approximately 400 lizbeth daily. She is drinking one half of a protein shake daily, taking thrive powder supplement and multivitamin. Patient was doing well and states that she is lost approximately 11 pounds. However at approximately 2:00 this morning she woke up with severely violent nausea and vomiting. It was relentless until she came to the hospital. She is not been able tolerate any liquid or solid. Patient had workup done emergency department found to have diabetic ketoacidosis and is recommended patient be admitted the ICU for further management care. CBC/BMP: 12/06/17 0422 12/06/17 0422 Significant Findings Laboratory Tests Test 12/03/17 11:32 12/03/17 12:15 12/03/17 16:20 12/04/17 04:45 Blood Gas HCO3 15 mmol/L (22-26) Blood Gas Base Excess -9.7 mmol/L (-2-2) Arterial Blood pH 7.36 (7.380-7.420) Arterial Blood Partial Pressure CO2 27 mmHg (38-42) Neutrophils (%) (Auto) 72.0 % (16.0-70.0) Neutrophils # (Auto) 7.8 TH/MM3 (1.8-7.7) Random Glucose 154 MG/DL (74-106) 169 MG/DL (74-106) 115 MG/DL (74-106) Calcium Level 7.6 MG/DL (8.5-10.1) 7.9 MG/DL (8.5-10.1) 7.7 MG/DL (8.5-10.1) Potassium Level 3.3 MEQ/L (3.5-5.1) 3.3 MEQ/L (3.5-5.1) Chloride Level 116 MEQ/L (98-107) 115 MEQ/L (98-107) 114 MEQ/L (98-107) Carbon Dioxide Level 16.6 MEQ/L (21.0-32.0) 14.7 MEQ/L (21.0-32.0) Estimat Glomerular Filtration Rate 87 ML/MIN (>89) Blood Urea Nitrogen 6 MG/DL (7-18) 5 MG/DL (7-18) Phosphorus Level 0.9 MG/DL (2.5-4.9) 1.0 MG/DL (2.5-4.9) Troponin I LESS THAN 0.02 NG/ML Test 12/04/17 09:23 12/04/17 14:59 12/05/17 05:10 12/06/17 04:22 Activated Partial Thromboplast Time 23.6 SEC (24.3-30.1) Blood Urea Nitrogen 5 MG/DL (7-18) Random Glucose 168 MG/DL (74-106) 117 MG/DL (74-106) 152 MG/DL (74-106) Calcium Level 8.2 MG/DL (8.5-10.1) 7.7 MG/DL (8.5-10.1) 8.3 MG/DL (8.5-10.1) Chloride Level 110 MEQ/L (98-107) 110 MEQ/L (98-107) Troponin I LESS THAN 0.02 NG/ML Platelet Count 148 TH/MM3 (150-450) Creatinine 0.48 MG/DL (0.50-1.00) Total Protein 5.7 GM/DL (6.4-8.2) Albumin 2.5 GM/DL (3.4-5.0) 2.7 GM/DL (3.4-5.0) PE at Discharge Lung sounds are clear bilaterally, heart sounds are regular rate and rhythm Abdomen soft, nontender, nondistended Hospital Course Patient was admitted, started on IV insulin drip protocol. Was eventually transitioned over to subcutaneous insulin and within a 24-hour period needed no more than 10 units of Levemir. Patient was tolerating by mouth intake well with no further nausea vomiting. Her ketoacidosis had also resolved. Patient was given extensive diabetic education. Was given a diabetic glucose testing supply kit. Patient was counseled extensively to not conduct any further fasting episodes without notifying her doctor. She was instructed to resume her home for Z cuff and metformin regimen and to check her sugars 3 times a day pre-meals. She was also given a prescription for low-dose Levemir to take only as needed if her sugars were elevated beyond 200 in the a.m. Pt Condition on Discharge: Stable Discharge Disposition: Discharge Home Discharge Time: > 30 minutes Discharge Instructions DIET: Follow Instructions for: Diabetic Diet Art Grant MD Dec 06, 2017 11:18
[2017-12-06] MEDS ORDERED: INSU1MIS15 (11:22)
[2017-12-06] MEDS ORDERED: LEVEMIR SQ (11:22)
[2017-12-06] MEDS ORDERED: LANCETS1 MI1 (11:22)
--- NOTE | 2017-12-06 11:23 | HHI.DCPOC ---
Discharge Care Plan Diagnosis: (1) Diabetes mellitus (2) DKA (diabetic ketoacidosis) Goals to Promote Your Health * To prevent worsening of your condition and complications * To maintain your health at the optimal level Directions to Meet Your Goals Take your medications as prescribed Follow your dietary instruction Follow activity as directed Keep your appointments as scheduled Take your immunizations and boosters as scheduled If your symptoms worsen call your PCP, if no PCP go to Urgent Care Center or Emergency Room Smoking is Dangerous to Your Health. Avoid second hand smoke Call the 24-hour hour crisis hotline for domestic abuse at Art Grant MD Dec 06, 2017 11:23
[2017-12-06] MEDS: INSULIN NovoLIN REGULAR SUPPLEMENTAL SCALE SQ SCH (12:01)
[2017-12-06] MEDS: FAMOTIDINE 20 MG TAB PO SCH (13:39)
[2017-12-06] MEDS: DOCUSATE SODIUM 50 MG/SENNA 8.6 MG TAB PO SCH (13:40)
[2017-12-06] MEDS: DULoxetine HCl DR 60 MG CAP PO SCH (13:40)
== END 2017-12-06 14:12 | disposition home or self-care (01) | DRG 638 ==
LOC: PHED 13:49 → PHEDA 16:59 → PHICU 20:48 → PH3A 12-06 10:17
PROVIDERS: ADMIT Hospitalist; ATTEND Hospitalist
DX: E11.10 Type 2 diabetes mellitus with ketoacidosis without coma (principal); Z79.84 Long term (current) use of oral hypoglycemic drugs; N17.9 Acute kidney failure, unspecified; R65.10 Systemic inflammatory response syndrome (SIRS) of non-infectious origin without acute organ dysfunction; I48.91 Unspecified atrial fibrillation; E88.09 Other disorders of plasma-protein metabolism, not elsewhere classified; E83.39 Other disorders of phosphorus metabolism; E86.0 Dehydration; I10 Essential (primary) hypertension; N39.0 Urinary tract infection, site not specified; E78.5 Hyperlipidemia, unspecified; F32.9 Major depressive disorder, single episode, unspecified; E87.6 Hypokalemia; I35.8 Other nonrheumatic aortic valve disorders; Z71.3 Dietary counseling and surveillance
CPT/HCPCS: 36600; 71045; 80048; 80053; 80162; 81001; 82010; 82550; 82805; 82948; 83605; 83735; 84100; 84155; 84443; 84484; 85025; 85027; 85610; 85730; 87086; 87641; 93005; 93306; 94150; 96361; 96374; 96375; J0610; J0696; J1160; J1644; J1815; J1817; J2405; J3480; J7030; J7042; J7050